=== PATIENT | male | born 1975 | race Caucasian/White ===

== ENCOUNTER 2019-05-04 23:22 | Emergency (ER) | payer OTHER ==
[2019-05-04] MEDS ORDERED: NA CHLORIDE 0.9% 1,000 ML ONE (23:49)
[2019-05-05 00:02] LABS: Absolute Lymphocytes (CBC) 1.9 K/uL (0.7-4.9); Basophils % 1.4 % (0-1.3); Hematocrit 42.7 % (39.6-49.0); Lymphocytes % 22.1 % (15.3-44.8); MPV 8.2 fL (7.6-11.3); RBC Red Blood Cell Count 5.05 M/uL (4.33-5.43)
[2019-05-05 00:15] LABS: Potassium 4.2 mmol/L (3.5-5.1)
[2019-05-05] MEDS ORDERED: NA CHLORIDE 0.9% 500 ML ONE (01:30)
--- NOTE | 2019-05-05 02:17 | EDPHYS ---
Physician Documentation [facility] Name: Caesar Schumacher Jr Age: 43 yrs Sex: Male : 1975 Arrival Date: 05/04/2019 Time: 23:24 Bed 20 Private MD: ED Physician Jimy Tellez HPI: 05/04 23:34 This 43 yrs old Male presents to ER via EMS with complaints of dysphagia. rn 23:34 The patient presents with dysphagia, of both solids and liquids. Onset: The rn symptoms/episode began/occurred 3 day(s) ago. Severity of symptoms: At their worst the symptoms were moderate, in the emergency department the symptoms are unchanged. Modifying factors: The symptoms are alleviated by nothing, the symptoms are aggravated by swallowing. The patient has experienced similar episodes in the past. Reports for 3-4 months has been having trouble swallowing solids and liquids, states almost every meal, chokes on it, then feels like can't catch his breath. Reports admitted in [place] for this in January, reports told everything was ok, including scope. REports can't drink anything or keep anything down but after episodes states tap water helps with his cough and able to keep it down then.. Historical: - Allergies: 23:20 No Known Allergies; cc3 - Home Meds: 23:20 Metformin Oral [Active]; lisinopril 20 mg Oral tab 1 tab once daily [Active]; cc3 - PMHx: 23:20 Diabetes - NIDDM; Hypertension; Hyperlipidemia; heartburn; Sleep Apnea; cc3 - PSHx: 23:20 left hand surgery; cc3 - Immunization history:: Adult Immunizations up to date. - Social history:: Smoking status: Patient/guardian denies using tobacco, never smoked. - Family history:: not pertinent. - Ebola Screening: : No symptoms or risks identified at this time. - Hospitalizations: : No recent hospitalization is reported. ROS: 23:36 Constitutional: Negative for fever, chills, and weight loss, Eyes: Negative for injury, rn pain, redness, and discharge, Neck: Negative for injury, pain, and swelling, Cardiovascular: Negative for chest pain, palpitations, and edema, Respiratory: Negative for wheezing, and pleuritic chest pain, Abdomen/GI: Negative for abdominal pain, diarrhea, and constipation, MS/Extremity: Negative for injury and deformity, Skin: Negative for injury, rash, and discoloration, Neuro: Negative for headache, weakness, numbness, tingling, and seizure. Exam: 23:36 Constitutional: Overweight male, no acute distress. Head/Face: Normocephalic, rn atraumatic. Eyes: Pupils equal round and reactive to light, extra-ocular motions intact. Lids and lashes normal. Conjunctiva and sclera are non-icteric and not injected. Cornea within normal limits. Periorbital areas with no swelling, redness, or edema. ENT: MMM, no stridor, no swelling Neck: Trachea midline, no thyromegaly or masses palpated, and no cervical lymphadenopathy. Supple, full range of motion without nuchal rigidity, or vertebral point tenderness. No Meningismus. Cardiovascular: Regular rate and rhythm. No pulse deficits. Respiratory: Lungs have equal breath sounds bilaterally, clear to auscultation. No increased work of breathing, no retractions or nasal flaring. Abdomen/GI: soft, non-tender MS/ Extremity: Pulses equal, no cyanosis. Neurovascular intact. Full, normal range of motion. Equal circumference. Neuro: Awake and alert, GCS 15, oriented to person, place, time, and situation. Cranial nerves II-XII grossly intact. Motor strength 5/5 in all extremities. Sensory grossly intact. Vital Signs: 23:20 BP 162 / 98; Pulse 97; Resp 20 S; Temp 98.4(O); Pulse Ox 98% on R/A; Weight 180.98 kg cc3 (R); Height 6 ft. 1 in. (185.42 cm) (R); Pain 0/10; 05/05 00:35 BP 143 / 85; Pulse 93; Resp 20 S; Pulse Ox 96% on R/A; cc3 01:30 BP 143 / 83; Pulse 91; Resp 20 S; Pulse Ox 95% on R/A; cc3 02:25 BP 148 / 82; Pulse 90; Resp 19 S; Pulse Ox 96% on R/A; cc3 03:15 BP 145 / 82; Pulse 90; Resp 19; Temp 98.3; Pulse Ox 96% ; rr5 05/04 23:20 Body Mass Index 52.64 (180.98 kg, 185.42 cm) cc3 MDM: 05/04 23:32 Patient medically screened. rn 05/05 01:26 ED course: Drank cup of water while here, no emesis. . rn 02:12 Differential diagnosis: pharyngitis, tonsillitis, upper respiratory infection, viral rn syndrome stricture, esophageal spasm. Data reviewed: vital signs, nurses notes, lab test result(s), radiologic studies, CT scan, plain films. Test interpretation: by ED physician or midlevel provider: plain radiologic studies, CXR neg for acute findings. Counseling: I had a detailed discussion with the patient and/or guardian regarding: the historical points, exam findings, and any diagnostic results supporting the discharge/admit diagnosis, lab results, radiology results, the need for outpatient follow up, to return to the emergency department if symptoms worsen or persist or if there are any questions or concerns that arise at home. Special discussion: I discussed with the patient/guardian in detail that at this point there is no indication for admission to the hospital. It is understood, however, that if the symptoms persist or worsen the patient needs to return immediately for re-evaluation. ED course: CT shows possible mild tonsillitis, will dc home with abx, and recommend starting antacid. Tolerated PO challenge here, and had neg scope a few months ago for ongoing symptoms. . 05/04 23:34 Order name: CBC with Diff; Complete Time: 00:33 rn 05/04 23:34 Order name: Basic Metabolic Panel; Complete Time: 00:33 rn 05/04 23:34 Order name: CT Soft Tissue Neck W/contr rn 05/04 23:34 Order name: Lipase; Complete Time: 00:33 rn 05/04 23:34 Order name: XRAY Chest (1 view) rn 05/04 23:34 Order name: IV Start; Complete Time: 23:58 rn 05/04 23:34 Order name: PO challenge; Complete Time: 00:10 rn Administered Medications: 05/04 23:57 Drug: NS 0.9% 1000 ml Route: IV; Rate: 1000 ml; Site: left antecubital; cc3 05/05 02:00 Follow up: Response: No adverse reaction; IV Status: Completed infusion; IV Intake: rr5 1000ml 01:41 Drug: NS 0.9% 500 ml Route: IV; Rate: bolus; Site: left antecubital; cc3 03:19 Follow up: Response: No adverse reaction; IV Status: Completed infusion; IV Intake: rr5 500ml 02:26 Drug: Augmentin 875 mg Route: PO; cc3 03:19 Follow up: Response: No adverse reaction rr5 Disposition: 05/05/19 02:16 Discharged to Home. Impression: Dysphagia, Acute tonsillitis, unspecified. - Condition is Stable. - Discharge Instructions: Dysphagia, Tonsillitis. - Prescriptions for Augmentin 875- 125 mg Oral Tablet - take 1 tablet by ORAL route every 12 hours for 10 days; 20 tablet. Protonix 40 mg Oral Tablet - take 1 tablet by ORAL route once daily; 30 tablet. Lantus 100 unit/mL Subcutaneous solution - inject 35 unit by SUBCUTANEOUS route Every morning and evening Daily; 1 vial. Lisinopril 20 mg Oral Tablet - take 1 tablet by ORAL route once daily; 30 tablet. - Medication Reconciliation Form, Thank You Letter, Antibiotic Education, Prescription Opioid Use form. - Follow up: Private Physician; When: As needed; Reason: Recheck today's complaints, Re-evaluation by your physician. - Problem is an ongoing problem. - Symptoms have improved. Signatures: Dispatcher [employer] EDMS Jimy Tellez MD MD rn Cordel, Charlene cc3 Hugo Jiménez RN RN rr5 Corrections: (The following items were deleted from the chart) 03:21 02:16 05/05/2019 02:16 Discharged to Home. Impression: Dysphagia; Acute tonsillitis, rr5 unspecified. Condition is Stable. Forms are Medication Reconciliation Form, Thank You Letter, Antibiotic Education, Prescription Opioid Use. Follow up: Private Physician; When: As needed; Reason: Recheck today's complaints, Re-evaluation by your physician. Problem is an ongoing problem. Symptoms have improved. rn
--- NOTE | 2019-05-05 02:17 | ER ---
Nurse's Notes [facility] Name: Caesar Schumacher Jr Age: 43 yrs Sex: Male : 1975 Arrival Date: 05/04/2019 Time: 23:24 Bed 20 Private MD: Diagnosis: Dysphagia;Acute tonsillitis, unspecified Presentation: 05/04 23:20 Presenting complaint: EMS states: "Since December, everytime he eats or drinks he feels like cc3 choking. Patient said he was seen in [place] in January". Transition of care: patient was not received from another setting of care. Onset of symptoms is unknown. Risk Assessment: Do you want to hurt yourself or someone else? Patient reports no desire to harm self or others. Initial Sepsis Screen: Does the patient meet any 2 criteria? No. Patient's initial sepsis screen is negative. Does the patient have a suspected source of infection? No. Patient's initial sepsis screen is negative. Care prior to arrival: None. 23:20 Method Of Arrival: EMS: [facility] cc3 23:20 Acuity: ERIS 3 cc3 Triage Assessment: 23:20 General: Appears in no apparent distress. comfortable, Behavior is calm, cooperative, cc3 appropriate for age. Pain: Denies pain. EENT: Reports everytime he eats or drinks he feels like choking. Neuro: Level of Consciousness is awake, alert, obeys commands, Oriented to person, place, time, situation, Appropriate for age. Cardiovascular: Denies chest pain, Capillary refill < 3 seconds in bilateral fingers Patient's skin is warm and dry. Respiratory: Airway is patent Respiratory effort is even, unlabored, Respiratory pattern is regular, symmetrical. GI: Abdomen is round obese. : No signs and/or symptoms were reported regarding the genitourinary system. Derm: Skin is intact, is healthy with good turgor, Skin is pink, warm \\T\\ dry. normal. Musculoskeletal: Circulation, motion, and sensation intact. Range of motion: intact in all extremities. Historical: - Allergies: 23:20 No Known Allergies; cc3 - Home Meds: 23:20 Metformin Oral [Active]; lisinopril 20 mg Oral tab 1 tab once daily [Active]; cc3 - PMHx: 23:20 Diabetes - NIDDM; Hypertension; Hyperlipidemia; heartburn; Sleep Apnea; cc3 - PSHx: 23:20 left hand surgery; cc3 - Immunization history:: Adult Immunizations up to date. - Social history:: Smoking status: Patient/guardian denies using tobacco, never smoked. - Family history:: not pertinent. - Ebola Screening: : No symptoms or risks identified at this time. - Hospitalizations: : No recent hospitalization is reported. Screenin:20 Abuse screen: Denies threats or abuse. Denies injuries from another. Nutritional cc3 screening: No deficits noted. Tuberculosis screening: No symptoms or risk factors identified. Fall Risk Ambulatory Aid- None/Bed Rest/Nurse Assist (0 pts). Gait- Normal/Bed Rest/Wheelchair (0 pts) Mental Status- Oriented to own ability (0 pts). Assessment: 23:20 General: see triage assessment. cc3 05/05 00:36 Reassessment: Patient appears in no apparent distress at this time. Patient and/or cc3 family updated on plan of care and expected duration. Pain level reassessed. Patient is alert, oriented x 3, equal unlabored respirations, skin warm/dry/pink. 01:30 Reassessment: Patient appears in no apparent distress at this time. Patient and/or cc3 family updated on plan of care and expected duration. Pain level reassessed. Patient is alert, oriented x 3, equal unlabored respirations, skin warm/dry/pink. Patient came back from CT scan department, awaiting result. 02:18 Reassessment: Patient appears in no apparent distress at this time. Patient and/or cc3 family updated on plan of care and expected duration. Pain level reassessed. Patient is alert, oriented x 3, equal unlabored respirations, skin warm/dry/pink. Dr. Tellez said to discharge the patient once IV fluid is completed. Patient denies pain at this time. 03:15 Reassessment: Patient appears in no apparent distress at this time. Patient is alert, rr5 oriented x 3, equal unlabored respirations, skin warm/dry/pink. IV fluid consumed and terminated discharge instruction given and explained without complaints made. verbalized undertsanding. Patient states feeling better. Patient states symptoms have improved. Vital Signs: 05/04 23:20 BP 162 / 98; Pulse 97; Resp 20 S; Temp 98.4(O); Pulse Ox 98% on R/A; Weight 180.98 kg cc3 (R); Height 6 ft. 1 in. (185.42 cm) (R); Pain 0/10; 05/05 00:35 BP 143 / 85; Pulse 93; Resp 20 S; Pulse Ox 96% on R/A; cc3 01:30 BP 143 / 83; Pulse 91; Resp 20 S; Pulse Ox 95% on R/A; cc3 02:25 BP 148 / 82; Pulse 90; Resp 19 S; Pulse Ox 96% on R/A; cc3 03:15 BP 145 / 82; Pulse 90; Resp 19; Temp 98.3; Pulse Ox 96% ; rr5 05/04 23:20 Body Mass Index 52.64 (180.98 kg, 185.42 cm) cc3 ED Course: 05/04 23:20 Arm band placed on right wrist. Patient notified of wait time. cc3 23:20 Patient has correct armband on for positive identification. Placed in gown. Bed in low cc3 position. Call light in reach. Side rails up X 1. Pulse ox on. NIBP on. 23:24 Patient arrived in ED. ds1 23:29 Landy Howard is Primary Nurse. cc3 23:32 Jimy Tellez MD is Attending Physician. rn 23:33 Triage completed. cc3 23:54 XRAY Chest (1 view) In Process Unspecified. EDMS 23:57 Inserted saline lock: 20 gauge in left antecubital area, using aseptic technique. Blood jd2 collected. 23:57 Initial lab(s) drawn, by me, sent to lab. jd2 05/05 01:21 CT Soft Tissue Neck W/contr In Process Unspecified. EDMS 03:16 No provider procedures requiring assistance completed. IV discontinued, intact, rr5 bleeding controlled, No redness/swelling at site. Pressure dressing applied. Administered Medications: 05/04 23:57 Drug: NS 0.9% 1000 ml Route: IV; Rate: 1000 ml; Site: left antecubital; cc3 05/05 02:00 Follow up: Response: No adverse reaction; IV Status: Completed infusion; IV Intake: rr5 1000ml 01:41 Drug: NS 0.9% 500 ml Route: IV; Rate: bolus; Site: left antecubital; cc3 03:19 Follow up: Response: No adverse reaction; IV Status: Completed infusion; IV Intake: rr5 500ml 02:26 Drug: Augmentin 875 mg Route: PO; cc3 03:19 Follow up: Response: No adverse reaction rr5 Intake: 02:00 IV: 1000ml; Total: 1000ml. rr5 03:19 IV: 500ml; Total: 1500ml. rr5 Outcome: 02:16 Discharge ordered by . rn 03:16 Discharged to home ambulatory. rr5 03:16 Condition: stable 03:16 Discharge instructions given to patient, Instructed on discharge instructions, follow up and referral plans. medication usage, Demonstrated understanding of instructions, follow-up care, medications, Prescriptions given X 4. 03:21 Patient left the ED. rr5 Signatures: Dispatcher [employer] [facility] [place] ds1 Jimy Tellez MD MD rn Donley, Jonika jd2 Cordel, Charlene cc3 Hugo Jiménez RN RN rr5 Corrections: (The following items were deleted from the chart) 05/04 23:38 23:20 BP 162 / 98; Pulse 97bpm; Resp 20bpm; Spontaneous; Pulse Ox 98% RA; cc3 cc3 05/05 00:36 05/04 23:20 BP 162 / 98; Pulse 97bpm; Resp 20bpm; Spontaneous; Pulse Ox 98% RA; Temp cc3 98.4F Oral; 180.98 kg Reported; Height 6 ft. 1 in. Reported; BMI: 52.6; cc3 05/05 01:33 01:30 Pulse 91bpm; Resp 20bpm; Spontaneous; Pulse Ox 95% RA; cc3 cc3
[2019-05-05] MEDS ORDERED: AMOX/K CLAV 875 MG TAB ONE (02:23)
[2019-05-05 03:30] VITALS: BP 145/82; TEMP 98.3; O2SAT 96
--- NOTE | 2019-05-05 07:42 | RAD REPORT ---
EXAM DESCRIPTION: RAD - Chest Single View - 05/04/2019 11:53 pm CLINICAL HISTORY: Dysphagia, chest pain COMPARISON: September 2014 TECHNIQUE: AP portable chest image was obtained 2348 hours . FINDINGS: Lungs are clear. Heart and vasculature are normal. No measurable pleural effusion and no p neumothorax. No acute bony abnormality seen. No acute aortic finding. Trachea is midline. Mediastinal and hilar regions are within normal limits and similar to comparison. IMPRESSION: No acute cardiopulmonary process.
--- NOTE | 2019-05-05 11:27 | RAD REPORT ---
EXAM DESCRIPTION: CT - Soft Tissue Neck W/Contr - 05/05/2019 2:43 am CLINICAL HISTORY: The patient is 43 years old and is Male; dysphagia TECHNIQUE: Axial computed tomography images of the neck with intravenous contrast. Sagittal and co yadira reformatted images were created and reviewed. This CT exam was performed using one or more of the following dose reduction techniques: automated exposure control, adjustment of the mA and/or k V according to patient size, and/or use of iterative reconstruction technique. COMPARISON: No relevant prior studies available. FINDINGS: OROPHARYNX: Mild enlargement of the palatine tonsils is noted. No peritonsillar absces s. HYPOPHARYNX: Unremarkable. LARYNX: Unremarkable. Normal epiglottis. TRACHEA: Unremarkable. RETROPHARYNGEAL SPACE: Unremarkable. SUBMANDIBULAR/PAROTID GLANDS: Unremarkable. Glands are normal in size. THYROID: Unremarkable. No enlarged or calcified nodules. BONES/JOINTS: No acute fracture. SOFT TISSUES: The soft tissues are normal. VASCULATURE: Unremarkable. Normal in course and caliber. LYMPH NODES: Unremarkable. No enlarged lymph nodes. LUNG APICES: The lung apices are clear. IMPRESSION: Findings suggestive of mild tonsillitis. No evidence of peritonsillar abscess. Electronically signed by: Priya Lombardo MD 05/05/2019 2:04 AM CDT Due to temporary technical issues with the PACS/Fluency reporting system, reports are being signed by the in house radiologist as a courtesy to ensure prompt reporting. The interpreting radiologist is f ully responsible for the content of the report.
== END 2019-05-05 03:21 | disposition home or self-care (01) ==
LOC: ER 23:22
DX: R13.10 Dysphagia, unspecified (principal); J03.90 Acute tonsillitis, unspecified
CPT/HCPCS: 96361; 85025; 80048; 36415; 83690; 70491; 71045; 96360; 99284; Q9967; J7030

== ENCOUNTER 2019-05-10 23:54 | Emergency (ER) | payer OTHER ==
[2019-05-11 01:23] LABS: Absolute Lymphocytes (CBC) 1.7 K/uL (0.7-4.9); Basophils % 0.9 % (0-1.3); Hematocrit 39.4 % (39.6-49.0); Lymphocytes % 23.7 % (15.3-44.8); MPV 8.2 fL (7.6-11.3); RBC Red Blood Cell Count 4.62 M/uL (4.33-5.43)
[2019-05-11 01:34] LABS: ALT/SGPT 72 U/L (12-78); AST/SGOT 50 U/L (15-37); Albumin 3.5 g/dL (3.4-5.0); Alkaline Phosphatase 79 U/L (45-117); BUN Blood Urea Nitrogen 17 mg/dL (7-18); Bicarbonate 30 mmol/L (21-32); Bilirubin Total 0.4 mg/dL (0.2-1.0); Glucose Level 170 mg/dL (74-106); Potassium 4.3 mmol/L (3.5-5.1); Protein, Total 7.2 g/dL (6.4-8.2); Sodium Level 141 mmol/L (136-145)
[2019-05-11] MEDS ORDERED: CEFTRIAXONE/SWI 1gm 1 GM/10 ML SYR ONE (04:03)
--- NOTE | 2019-05-11 04:05 | ER ---
Nurse's Notes [facility] Name: Caesar Schumacher Jr Age: 43 yrs Sex: Male : 1975 Arrival Date: 05/11/2019 Time: 00:02 Bed 5 Private MD: Diagnosis: Tinea cruris;Cellulitis Presentation: 05/11 00:04 Presenting complaint: EMS states: He has noticed that his testicles are swollen and tr5 that he has some blood in his urine for the past 3 days. Transition of care: patient was not received from another setting of care. Onset of symptoms was May 11, 2019. Risk Assessment: Do you want to hurt yourself or someone else? Patient reports no desire to harm self or others. Initial Sepsis Screen: Does the patient meet any 2 criteria? No. Patient's initial sepsis screen is negative. Does the patient have a suspected source of infection? No. Patient's initial sepsis screen is negative. 00:04 Method Of Arrival: EMS: [facility] tr5 00:04 Acuity: ERIS 3 tr5 02:15 Care prior to arrival: None. rr5 Historical: - Allergies: 00:08 No Known Allergies; tr5 - Home Meds: 00:08 Metformin Oral [Active]; lisinopril 20 mg Oral tab 1 tab once daily [Active]; tr5 - PMHx: 00:08 Diabetes - NIDDM; Heartburn; Hyperlipidemia; Hypertension; Sleep Apnea; ADD/ADHD; tr5 - PSHx: 00:08 None; tr5 - Immunization history:: Adult Immunizations up to date. - Social history:: Smoking status: unknown. - Ebola Screening: : No symptoms or risks identified at this time. Screenin:20 Abuse screen: Denies threats or abuse. Nutritional screening: No deficits noted. tr5 Tuberculosis screening: No symptoms or risk factors identified. Fall Risk None identified. Assessment: 00:20 General: Appears obese, unkempt, Behavior is calm, cooperative. Pain: Complains of pain tr5 in pelvis Pain does not radiate. Quality of pain is described as throbbing, Pain began gradually, Is episodic. Neuro: Level of Consciousness is awake, alert, obeys commands, Oriented to person, place, situation, [employer] Operator are equal bilaterally Moves all extremities. Cardiovascular: Heart tones present Capillary refill < 3 seconds Pulses are all present. Edema is absent. Respiratory: Airway is patent Respiratory effort is even, unlabored, Respiratory pattern is regular, symmetrical. GI: No signs and/or symptoms were reported involving the gastrointestinal system. : Reports Blood in urine. EENT: No signs and/or symptoms were reported regarding the EENT system. Derm: Rash noted that is on pelvis. 01:36 Reassessment: Patient appears in no apparent distress at this time. Patient and/or tr5 family updated on plan of care and expected duration. Pain level reassessed. Patient is alert, oriented x 3, equal unlabored respirations, skin warm/dry/pink. 02:15 Reassessment: Patient appears in no apparent distress at this time. Patient is alert, rr5 oriented x 3, equal unlabored respirations, skin warm/dry/pink. received from tejas HALEY, awake conscious and coherent not in distress GCS 15/15 breathing spontaneously at room air. complaining of swollen scrotum and blood in urine. awaiting for scrotal ultrasound procedure. 03:30 Reassessment: Patient appears in no apparent distress at this time. Patient is alert, rr5 oriented x 3, equal unlabored respirations, skin warm/dry/pink. awaiting for ultrasound result. chatting with his dietetic technician at bedside. 04:18 Reassessment: Patient appears in no apparent distress at this time. Patient is alert, rr5 oriented x 3, equal unlabored respirations, skin warm/dry/pink. discharge instruction given and explained without complaints made. Patient states feeling better. Patient states symptoms have improved. Vital Signs: 00:04 BP 160 / 97; Pulse 90; Resp 17; Temp 98.5(O); Pulse Ox 95% on R/A; Weight 181.44 kg; tr5 Height 0 ft. 1 in. (4 cm); 02:15 BP 148 / 85; Pulse 95; Resp 20; Temp 98.4; Pulse Ox 99% ; rr5 03:35 BP 143 / 89; Pulse 89; Resp 19; Pulse Ox 94% ; rr5 04:16 BP 141 / 85; Pulse 81; Resp 17; Temp 97.8; Pulse Ox 98% ; rr5 00:04 Body Mass Index 504958.09 (181.44 kg, 4 cm) tr5 ED Course: 00:02 Patient arrived in ED. tr5 00:07 Triage completed. tr5 00:08 Sukh Granger MD is Attending Physician. ps1 00:08 Arm band placed on. tr5 00:20 Bed in low position. Call light in reach. Side rails up X 1. tr5 00:28 Tejas Cardozo, RN is Primary Nurse. tr5 01:05 Initial lab(s) drawn, by me, sent to lab. Inserted saline lock: 20 gauge in left aa1 antecubital area, using aseptic technique. Blood collected. 01:10 Initial lab(s) drawn, by ED staff, sent to lab. Inserted saline lock: 20 gauge in left tr5 antecubital area, using aseptic technique. 03:13 Patient taken to ultrasound. via wheelchair. lc3 03:13 Ultrasound completed. Patient tolerated well. Patient moved back from ultrasound. lc3 03:15 Scrotum Testicles US In Process Unspecified. EDMS 04:16 No provider procedures requiring assistance completed. IV discontinued, intact, rr5 bleeding controlled, No redness/swelling at site. Pressure dressing applied. Administered Medications: 04:00 Drug: Rocephin - (cefTRIAXone) 1 grams Route: IVPB; Infused Over: 30 mins; Site: left rr5 antecubital; 04:22 Follow up: Response: No adverse reaction; IV Status: Completed infusion rr5 Outcome: 04:05 Discharge ordered by . ps1 04:16 Discharged to home ambulatory, with family. rr5 04:16 Condition: stable 04:16 Discharge instructions given to patient, Instructed on discharge instructions, follow up and referral plans. medication usage, Demonstrated understanding of instructions, follow-up care, medications, Prescriptions given X 3. 04:24 Patient left the ED. rr5 Signatures: Dispatcher [employer] EDPA Christelle Schmidt, RN RN aa1 Rosa Joshi lc3 Sukh Granger MD MD ps1 Hugo Jiménez RN RN rr5 Tejas Cardozo, SUDHA RN tr5
--- NOTE | 2019-05-11 04:05 | EDPHYS ---
Physician Documentation [facility] Name: Caesar Schumacher Jr Age: 43 yrs Sex: Male : 1975 Arrival Date: 05/11/2019 Time: 00:02 Bed 5 Private MD: ED Physician Sukh Granger HPI: 05/11 00:56 This 43 yrs old Male presents to ER via EMS with complaints of Testicular ps1 Problem, Urinary Problem. 00:56 patient states that his testicles have been swollen for last 3 days. States that he his ps1 diabetic. Poorly controlled. Unknown BS, has not checked them recently. Recently seen for dysphagia, had a CT STN, negative. Recent EGD negative. Testicles swollen over penis and retracted. . Historical: - Allergies: 00:08 No Known Allergies; tr5 - Home Meds: 00:08 Metformin Oral [Active]; lisinopril 20 mg Oral tab 1 tab once daily [Active]; tr5 - PMHx: 00:08 Diabetes - NIDDM; Heartburn; Hyperlipidemia; Hypertension; Sleep Apnea; ADD/ADHD; tr5 - PSHx: 00:08 None; tr5 - Immunization history:: Adult Immunizations up to date. - Social history:: Smoking status: unknown. - Ebola Screening: : No symptoms or risks identified at this time. ROS: 00:56 Constitutional: Negative for fever, chills, and weight loss, Eyes: Negative for injury, ps1 pain, redness, and discharge, Cardiovascular: Negative for chest pain, palpitations, and edema, Respiratory: Negative for shortness of breath, cough, wheezing, and pleuritic chest pain, Abdomen/GI: Negative for abdominal pain, nausea, vomiting, diarrhea, and constipation, MS/Extremity: Negative for injury and deformity, Skin: Negative for injury, rash, and discoloration. 00:56 : Positive for urinary symptoms, foul smelling urine, penile discharge, testicular pain Exam: 00:56 Constitutional: This is a well developed, well nourished patient who is awake, alert, ps1 and in no acute distress. Head/Face: Normocephalic, atraumatic. Eyes: Pupils equal round and reactive to light, extra-ocular motions intact. Lids and lashes normal. Conjunctiva and sclera are non-icteric and not injected. Chest/axilla: Normal chest wall appearance and motion. Nontender with no deformity. No lesions are appreciated. Cardiovascular: Regular rate and rhythm. No gallops, murmurs, or rubs. Normal PMI, no JVD. No pulse deficits. Respiratory: Lungs have equal breath sounds bilaterally, clear to auscultation and percussion. No rales, rhonchi or wheezes noted. No increased work of breathing, no retractions or nasal flaring. 00:56 : Male external genitalia: swelling, of the left testicle and right testicle is noted, that is moderate, penis is retracted underneath scrotal skin. . Vital Signs: 00:04 BP 160 / 97; Pulse 90; Resp 17; Temp 98.5(O); Pulse Ox 95% on R/A; Weight 181.44 kg; tr5 Height 0 ft. 1 in. (4 cm); 02:15 BP 148 / 85; Pulse 95; Resp 20; Temp 98.4; Pulse Ox 99% ; rr5 03:35 BP 143 / 89; Pulse 89; Resp 19; Pulse Ox 94% ; rr5 04:16 BP 141 / 85; Pulse 81; Resp 17; Temp 97.8; Pulse Ox 98% ; rr5 00:04 Body Mass Index 006795.09 (181.44 kg, 4 cm) tr5 MDM: 00:17 Patient medically screened. ps1 04:02 Data reviewed: vital signs, nurses notes, EMS record, old medical records, lab test ps1 result(s), radiologic studies, and as a result, I will discharge patient. Counseling: I had a detailed discussion with the patient and/or guardian regarding: the historical points, exam findings, and any diagnostic results supporting the discharge/admit diagnosis, lab results, radiology results, the need for outpatient follow up, to return to the emergency department if symptoms worsen or persist or if there are any questions or concerns that arise at home. ED course: patient has soft tissue swelling. No abscess. No leukocytosis. Prophylactic abx given in ED. Home with keflex and bactrim for suspected cellulitis. Precautions given. . 05/11 00:17 Order name: CBC with Diff; Complete Time: 01:24 ps1 05/11 00:17 Order name: CMP; Complete Time: 02:35 ps1 05/11 00:17 Order name: Lactate; Complete Time: 02:35 ps1 05/11 00:17 Order name: Scrotum Testicles US ps1 Administered Medications: 04:00 Drug: Rocephin - (cefTRIAXone) 1 grams Route: IVPB; Infused Over: 30 mins; Site: left rr5 antecubital; 04:22 Follow up: Response: No adverse reaction; IV Status: Completed infusion rr5 Disposition: 05/11/19 04:05 Discharged to Home. Impression: Tinea cruris, Cellulitis. - Condition is Stable. - Discharge Instructions: Cellulitis, Adult, Jock Itch. - Prescriptions for Keflex 500 mg Oral Capsule - take 1 capsule by ORAL route every 8 hours for 10 days; 30 capsule. Nystatin- Triamcinolone 100,000-0.1 unit/g-% Topical Cream - apply 1 application by TOPICAL route 2 times per day; 1 tube. Bactrim DS 800- 160 mg Oral Tablet - take 1 tablet by ORAL route every 12 hours for 10 days; 20 tablet. - Medication Reconciliation Form, Thank You Letter, Antibiotic Education, Prescription Opioid Use form. - Follow up: Private Physician; When: As needed; Reason: Recheck today's complaints, Continuance of care, Re-evaluation by your physician. Follow up: Emergency Department; When: As needed; Reason: Fever > 102 F, Worsening of condition. - Problem is new. - Symptoms have improved. Signatures: Dispatcher [employer] EDSukh Antunez MD MD ps1 Hugo Jiménez RN RN rr5 Yeison Cardozo RN RN tr5 Corrections: (The following items were deleted from the chart) 04:05 04:05 05/11/2019 04:05 Discharged to Home. Impression: Tinea cruris. Condition is ps1 Stable. Forms are Medication Reconciliation Form, Thank You Letter, Antibiotic Education, Prescription Opioid Use. Follow up: Private Physician; When: As needed; Reason: Recheck today's complaints, Continuance of care, Re-evaluation by your physician. Follow up: Emergency Department; When: As needed; Reason: Fever > 102 F, Worsening of condition. Problem is new. Symptoms have improved. ps1 04:24 04:05 05/11/2019 04:05 Discharged to Home. Impression: Tinea cruris; Cellulitis. rr5 Condition is Stable. Forms are Medication Reconciliation Form, Thank You Letter, Antibiotic Education, Prescription Opioid Use. Follow up: Private Physician; When: As needed; Reason: Recheck today's complaints, Continuance of care, Re-evaluation by your physician. Follow up: Emergency Department; When: As needed; Reason: Fever > 102 F, Worsening of condition. Problem is new. Symptoms have improved. ps1
[2019-05-11 04:54] VITALS: BP 141/85; TEMP 97.8; O2SAT 98
--- NOTE | 2019-05-11 11:02 | RAD REPORT ---
EXAM DESCRIPTION: US SCROTUM/TESTICLES CLINICAL HISTORY: Scrotal swelling and pain. COMPARISON: None. TECHNIQUE: Scrotal ultrasound FINDINGS: There is a large amount of scrotal skin thickening seen. Mild bilateral hydroceles are present. Arterial blood flow is seen to both testicles without evidence of torsion. The right testicle measures 4.6 x 2.9 cm. The left testicle measures 4.8 x 2.5 cm. Both epididymis are normal in size. No intratesticular mass is present. IMPRESSION: Significant scrotal edema and skin thickening is seen with small bilateral hydroceles. No intratesticular mass or evidence of testicular torsion is evident.
== END 2019-05-11 04:24 | disposition home or self-care (01) ==
LOC: ER 23:54
DX: B35.6 Tinea cruris (principal); N49.2 Inflammatory disorders of scrotum; I10 Essential (primary) hypertension; E11.9 Type 2 diabetes mellitus without complications
CPT/HCPCS: 96365; 85025; 36415; 83605; 80053; 76870; 99284; J0696

== ENCOUNTER 2020-02-23 09:54 | Emergency (ER) | payer OTHER ==
[2020-02-23 11:18] LABS: Absolute Lymphocytes (CBC) 1.5 K/uL (0.7-4.9); Basophils % 0.6 % (0-1.3); Hematocrit 44.9 % (39.6-49.0); Lymphocytes % 20.4 % (15.3-44.8); MPV 8.1 fL (7.6-11.3); RBC Red Blood Cell Count 5.24 M/uL (4.33-5.43)
[2020-02-23 11:28] LABS: Protime INR 0.98
[2020-02-23 11:35] LABS: Urine Blood NEGATIVE (NEG); Urine Glucose 2+ (NEG); Urine Protein NEGATIVE (NEG); Urine Specific Gravity 1.025 (1.005-1.030); Urine pH 5.5 (5.0-7.0)
[2020-02-23 11:40] LABS: ALT/SGPT 68 U/L (12-78); AST/SGOT 49 U/L (15-37); Albumin 3.4 g/dL (3.4-5.0); Alkaline Phosphatase 91 U/L (45-117); BUN Blood Urea Nitrogen 13 mg/dL (7-18); Bicarbonate 32 mmol/L (21-32); Bilirubin Direct < 0.1 mg/dL (0-0.2); Bilirubin Total 0.3 mg/dL (0.2-1.0); Glucose Level 338 mg/dL (74-106); Potassium 4.3 mmol/L (3.5-5.1); Protein, Total 7.6 g/dL (6.4-8.2); Sodium Level 135 mmol/L (136-145)
[2020-02-23 11:44] LABS: Barbiturates NEGATIVE (NEGATIVE); Benzodiazepines NEGATIVE (NEGATIVE); Cocaine NEGATIVE (NEGATIVE); METHAMPHETAM NEGATIVE (NEGATIVE); Methadone NEGATIVE (NEGATIVE); Opiates NEGATIVE (NEGATIVE); Phencyclidine NEGATIVE (NEGATIVE); THC Cannibis NEGATIVE (NEGATIVE)
[2020-02-23] MEDS ORDERED: INSULIN -REGULAR HUMAN 50 UNIT/0.5 ML ML ONE ×2 (11:56→18:41)
[2020-02-23] MEDS ORDERED: NA CHLORIDE 0.9% 1,000 ML ONE (11:56)
--- OUTSIDE RECORDS SUMMARY | 2020-02-23 13:31 | XMS REPORT | Clinical Summary ---
:1975 Author Organization [facility] Address [address] [place] [address] Care Team Providers Name Role Phone None Primary Care Provider Unavailable Allergies No Known Allergies Medications Medication Sig Dispensed Refills Start Date End Date Status rosuvastatin (CRESTOR) Take 10 mg by 0 Active 10 MG tablet mouth. metFORMIN (GLUCOPHAGE) Take 1,000 mg by 0 Active 1000 MG tablet mouth. lisinopril Take 20 mg by 0 Activ e (PRINIVIL,ZESTRIL) 20 MG mouth. tablet escitalopram (LEXAPRO) Take 30 mg by 0 Active 10 MG tablet mouth. famotidine (PEPCID) 40 Take 40 mg by 0 Active MG tablet mouth. Active Problems Not on file Social History Tobacco Use Types Packs/Day Years Used Date Current Every Day Smoker Alcohol Use Drinks/Week oz/Week Comments Yes Sex Assigned at Date Recorded Not on file Job Start Date Occupation Industry Not on file Not on file Not on file Travel History Travel Start Travel End No recent travel history available. Last Filed Vital Signs Not on file Plan of Treatment Not on file Results Not on fileafter 02/22/2019 Advance Directives For more information, please contact: [phone] Type Date Recorded Patient Licensed Funeral Director Explanati on Advance Directives, Living Will 08/12/2015 11:06 PM and Medical Power of Campus Security Officer
--- OUTSIDE RECORDS SUMMARY | 2020-02-23 13:31 | XMS REPORT | Clinical Summary ---
:1975 Author Organization [facility] Address [address] [place] [address] Care Team Providers Name Role Phone Beto Primary Care Provider Allergies No Known Allergies Medications Medication Sig Dispensed Refills Start Date End Date Status metFORMIN (GLUCOPHAGE) Take 1,000 mg by 0 Active 1000 MG tablet mouth 2 (two) times daily with breakfast and dinner. glyBURIDE (DIABETA) 5 Take 10 mg by 0 Active MG tablet mouth daily . lisinopril Take 20 mg by 0 Activ e (PRINIVIL,ZESTRIL) 20 mouth daily. MG tablet escitalopram (LEXAPRO) Take 30 mg by 0 Active 10 MG tablet mouth daily. famotidine (PEPCID) 40 Take 40 mg by 0 Active MG tablet mouth daily. rosuvastatin (CRESTOR) Take 10 mg by 0 Active 10 MG tablet mouth daily. Active Problems Not on file Family History Medical History Relation Name Comments Hypertension Father Diabetes Maternal Uncle Hypertension Maternal Uncle Hypertension Mother Relation Name Status Comments Father Maternal Uncle Mother Social History Tobacco Use Types Packs/Day Years Used Date Current Every Day Smoker Cigarettes 1 20 Alcohol Use Drinks/Week oz/Week Comments Yes 28 Cans of beer 16.8 daily Sex Assigned at Date Recorded Not on file Job Start Date Occupation Industry Not on file Not on file Not on file Travel History Travel Start Travel End No recent travel history available. Last Filed Vital Signs Not on file Plan of Treatment Not on file Results Not on fileafter 02/22/2019 Insurance Payer Benefit Plan / Subscriber ID Type Phone Address Group MEDICAID - MEDICAID [facility] xxxxxxxxx Medicaid Contracted MGD CARE PLAN
--- NOTE | 2020-02-23 17:13 | EDPHYS ---
Physician Documentation [facility] Name: Caesar Schumacher Jr Age: 44 yrs Sex: Male : 1975 Arrival Date: 02/23/2020 Time: 09:57 Bed 25 Private MD: ED Physician Shoaib Moran HPI: 02/22 14:17 This 44 yrs old Male presents to ER via Law Enforcement with complaints of kb Depression, Suicidal Ideation. 14:17 The patient presents to the emergency department with depression, over a , the kb patient's child. Onset: The symptoms/episode began/occurred 1.5 week(s) ago. Past psychiatric history: Prior diagnosis: bipolar disorder, depression. Associated signs and symptoms: Pertinent positives; depression, suicide ideation. Severity of symptoms: At their worst the symptoms were moderate in the emergency department the symptoms are unchanged. The patient has not experienced similar symptoms in the past. The patient has not recently seen a physician. 14:19 Pt reports depression and suicidal ideations for a week and a half. States the feelings kb started because his son and got worse today because the motel him and his fiance were staying in made them leave because they didn't have the money to stay another night. Fiance is here for same symptoms as well.. Historical: - Allergies: 10:03 No Known Allergies; ss - Home Meds: 10:03 lisinopril 20 mg Oral tab 1 tab once daily [Active]; Metformin Oral [Active]; ss - PMHx: 10:03 ADD/ADHD; Diabetes - NIDDM; Hyperlipidemia; Sleep Apnea; Hypertension; Heartburn; ss Bipolar disorder; - PSHx: 10:03 None; ss - Immunization history:: Adult Immunizations unknown. - Social history:: Smoking status: Patient denies any tobacco usage or history of. ROS: 14:16 Constitutional: Negative for fever, chills, and weight loss, Cardiovascular: Negative kb for chest pain, palpitations, and edema, Respiratory: Negative for shortness of breath, cough, wheezing, and pleuritic chest pain, Abdomen/GI: Negative for abdominal pain, nausea, vomiting, diarrhea, and constipation, Back: Negative for injury and pain, : Negative for injury, bleeding, discharge, and swelling, MS/Extremity: Negative for injury and deformity, Skin: Negative for injury, rash, and discoloration, Neuro: Negative for headache, weakness, numbness, tingling, and seizure. 14:16 Psych: Positive for depression, suicidal ideation. Exam: 14:16 Constitutional: This is a well developed, well nourished patient who is awake, alert, kb and in no acute distress. Head/Face: Normocephalic, atraumatic. Chest/axilla: Normal chest wall appearance and motion. Nontender with no deformity. No lesions are appreciated. Cardiovascular: Regular rate and rhythm with a normal S1 and S2. No gallops, murmurs, or rubs. Normal PMI, no JVD. No pulse deficits. Respiratory: Lungs have equal breath sounds bilaterally, clear to auscultation and percussion. No rales, rhonchi or wheezes noted. No increased work of breathing, no retractions or nasal flaring. Abdomen/GI: Soft, non-tender, with normal bowel sounds. No distension or tympany. No guarding or rebound. No evidence of tenderness throughout. Skin: Warm, dry with normal turgor. Normal color with no rashes, no lesions, and no evidence of cellulitis. MS/ Extremity: Pulses equal, no cyanosis. Neurovascular intact. Full, normal range of motion. Neuro: Awake and alert, GCS 15, oriented to person, place, time, and situation. Cranial nerves II-XII grossly intact. Motor strength 5/5 in all extremities. Sensory grossly intact. Cerebellar exam normal. Normal gait. 14:16 Psych: Behavior/mood is cooperative, Affect is calm, Oriented to person, place, time, Patient having thoughts of suicide. Denies suicidal plan. Judgement / Insight is normal. Memory is normal. Delusions/hallucinations are not present. Vital Signs: 10:00 BP 217 / 104; Pulse 105; Resp 22; Temp 98.4; Pulse Ox 94% ; Weight 154.22 kg; Height 6 ss ft. 1 in. (185.42 cm); Pain 0/10; 12:52 BP 141 / 96 RA (auto/lg); Pulse 82; Resp 20 S; Pulse Ox 94% on R/A; jp3 16:50 BP 176 / 94; Pulse 92; Resp 20; Temp 98.6; Pulse Ox 95% on R/A; Pain 0/10; em1 18:45 BP 166 / 98; Pulse 81; Resp 20; Pulse Ox 96% ; ah 19:30 BP 150 / 96; Pulse 87; Resp 18; Pulse Ox 95% ; ah 21:00 BP 149 / 88; Pulse 83; Resp 20; Pulse Ox 96% ; ah 10:00 Body Mass Index 44.86 (154.22 kg, 185.42 cm) ss MDM: 10:46 Patient medically screened. kb 14:16 Data reviewed: vital signs, nurses notes. Data interpreted: Pulse oximetry: on room air kb is 94 %. Interpretation: normal. 17:11 Counseling: I had a detailed discussion with the patient and/or guardian regarding: the kb historical points, exam findings, and any diagnostic results supporting the discharge/admit diagnosis, lab results, the need to transfer to another facility, [facility] does not immediately have the required specialist. 17:12 ED course: Pt accepted to [facility] by DR Kay. kb 02/22 10:47 Order name: Acetaminophen; Complete Time: 11:41 kb 02/22 10:47 Order name: Basic Metabolic Panel; Complete Time: 11:41 kb 02/22 10:47 Order name: CBC with Diff; Complete Time: 11:27 kb 02/22 10:47 Order name: ETOH Level; Complete Time: 11:34 kb 02/22 10:47 Order name: Hepatic Function; Complete Time: 11:41 kb 02/22 10:47 Order name: PT-INR; Complete Time: 11:49 kb 02/22 10:47 Order name: Ptt, Activated; Complete Time: 11:49 kb 02/22 10:47 Order name: Salicylate; Complete Time: 12:18 kb 02/22 10:47 Order name: Urine Drug Screen; Complete Time: 11:47 kb 02/22 11:30 Order name: Urine Dipstick--Ancillary (enter results); Complete Time: 11:36 em1 02/22 16:23 Order name: Glucose, Ancillary Testing; Complete Time: 16:25 EDMS 02/22 21:04 Order name: Glucose, Ancillary Testing EDMS 02/22 10:47 Order name: EKG; Complete Time: 10:49 kb 02/22 10:47 Order name: EKG - Nurse/Tech; Complete Time: 11:30 kb 02/22 10:47 Order name: IV Saline Lock; Complete Time: 11:31 kb 02/22 10:47 Order name: Labs collected and sent; Complete Time: 11:31 kb 02/22 10:47 Order name: Urine Dipstick-Ancillary (obtain specimen); Complete Time: 11:29 kb 02/22 12:03 Order name: Vital Signs; Complete Time: 12:53 kb 02/22 14:33 Order name: Diet Ada 1800 Efren; Complete Time: 14:33 ah Administered Medications: 11:50 Drug: NS 0.9% 1000 ml Route: IV; Rate: 1000 ml; Site: left antecubital; 22:56 Follow up: Response: No adverse reaction; IV Status: Completed infusion 11:50 Drug: Insulin Regular Human 5 units {Co-Signature: (Sammi Bocanegra RN).} Route: IVP; Site: left antecubital; 22:55 Follow up: Response: No adverse reaction 18:39 Drug: Insulin Regular Human 5 units {Co-Signature: (Saira Guzman RN).} Route: IVP; Site: left antecubital; 22:55 Follow up: Response: No adverse reaction; Blood sugar is lowered 18:40 Drug: cloNIDine 0.1 mg Route: PO; 22:55 Follow up: Response: No adverse reaction; Blood pressure is lowered Disposition: 02/23 08:22 Co-signature as Attending Physician, Shoaib Moran MD I agree with the assessment and [facility] plan of care. Disposition: 02/23/20 17:12 Transfer ordered to Psych Facility. Diagnosis are Suicidal ideations, Depression. - Reason for transfer: Higher level of care. - Accepting physician is Chirag. - Condition is Stable. - Problem is new. - Symptoms are unchanged. Signatures: Dispatcher [employer] Lizbeth Nath, TAX ADVISOR-C TAX ADVISOR-Ckb Shoaib Moran MD MD cha Smirch, Shelby, RN RN Sammi Bocanegra RN RN Sammi Bocanegra RN Saira Guzman RN Corrections: (The following items were deleted from the chart) 02/22 23:03 17:12 02/23/2020 17:12 Transfer ordered to Psych Facility. Diagnosis is Suicidal ah ideations; Depression. Reason for transfer: Higher level of care. Accepting physician is Chirag. Condition is Stable. Problem is new. Symptoms are unchanged. kb
--- NOTE | 2020-02-23 17:13 | ER ---
Nurse's Notes [facility] Name: Caesar Schumacher Jr Age: 44 yrs Sex: Male : 1975 Arrival Date: 02/23/2020 Time: 09:57 Bed 25 Private MD: Diagnosis: Suicidal ideations;Depression Presentation: 02/22 10:00 Chief complaint: Patient states: "I'm depressed and suicidal because my son ss a couple of weeks ago.". Coronavirus screen: Proceed with normal triage. Patient denies a cough. Patient denies shortness of breath or difficulty breathing. Patient denies measured and/or subjective temperature greater than 100.4F prior to today's visit. Patient denies travel on a cruise ship or to a country the [facility] currently lists as an affected area. Patient denies contact with known and/or suspected case of COVID-19. Ebola Screen: Patient negative for fever greater than or equal to 101.5 degrees Fahrenheit, and additional compatible Ebola Virus Disease symptoms Patient denies exposure to infectious person. Patient denies travel to an Ebola-affected area in the 21 days before illness onset. No symptoms or risks identified at this time. Initial Sepsis Screen: Does the patient meet any 2 criteria? No. Patient's initial sepsis screen is negative. Does the patient have a suspected source of infection? No. Patient's initial sepsis screen is negative. Risk Assessment: Do you want to hurt yourself or someone else? Patient reports desire/thoughts of hurting themselves or someone else. Provider notified. Onset of symptoms was February 13, 2020. 10:00 Method Of Arrival: Law Enforcement: Rianna JAMES 10:00 Acuity: ERIS 2 ss Historical: - Allergies: 10:03 No Known Allergies; ss - Home Meds: 10:03 lisinopril 20 mg Oral tab 1 tab once daily [Active]; Metformin Oral [Active]; ss - PMHx: 10:03 ADD/ADHD; Diabetes - NIDDM; Hyperlipidemia; Sleep Apnea; Hypertension; Heartburn; ss Bipolar disorder; - PSHx: 10:03 None; ss - Immunization history:: Adult Immunizations unknown. - Social history:: Smoking status: Patient denies any tobacco usage or history of. Screenin:05 Abuse screen: Denies threats or abuse. Nutritional screening: No deficits noted. Tuberculosis screening: No symptoms or risk factors identified. Fall Risk None identified. Assessment: 12:01 General: Appears obese, unkempt, Behavior is calm, cooperative, appropriate for age. Pain: Denies pain. Neuro: Level of Consciousness is awake, alert, obeys commands, Oriented to person, place, time, situation, Appropriate for age. Cardiovascular: Capillary refill < 3 seconds Patient's skin is warm and dry. Respiratory: Airway is patent Respiratory effort is even, unlabored. GI: Abdomen is obese, Derm: Skin is intact, Skin is dry. 12:18 Reassessment: Pt states that he has been seeing ghosts and demons for the last 7 days.He also states that he hears voices telling him to hurt himself but nothing specific. He was taking lexapro but has been out about 3 months. He states that he was also taking 2 other medications but cannot remember what they are and quit taking them because he thought he was better. 14:15 Reassessment:. 15:45 Reassessment: Nurse to nurse communication given to [facility]. 16:15 Reassessment: Pt sitting up in bed eating at this time. No needs voiced. 17:15 Reassessment: Patient and/or family updated on plan of care and expected duration. Pain ah level reassessed. Patient is alert, oriented x 3, equal unlabored respirations, skin warm/dry/pink. No needs voiced at this time. 18:40 Reassessment: Patient and/or family updated on plan of care and expected duration. Pain ah level reassessed. Pt given clonidine and insulin at this time. No other needs voiced at this time. 19:40 Reassessment: Patient and/or family updated on plan of care and expected duration. Pain ah level reassessed. Patient is alert, oriented x 3, equal unlabored respirations, skin warm/dry/pink. 20:40 Reassessment: Patient and/or family updated on plan of care and expected duration. Pain ah level reassessed. Patient is alert, oriented x 3, equal unlabored respirations, skin warm/dry/pink. No needs voiced at this time. 21:40 Reassessment: Patient and/or family updated on plan of care and expected duration. Pain ah level reassessed. Blood sugar and blood pressure are decreased. Awaiting transfer. No needs voiced. 22:52 Reassessment: transfer of care to [facility]. Psych: 12:06 Subjective: Patient's mood is sad, Hallucinations are auditory, Having thoughts of ah suicide. Objective: Patient is cooperative, Speech is normal, Affect is appropriate. Interventions: Removed personal items and placed in bag. Patient placed in hospital gown. Searched person for dangerous items. Urine collected and sent for urine drug test. Belonging list filled out. Suicide Risk Assessment: Sad Person Scale: Sex of patient: Male: Score 1 point. Age of patient: Score 0 point if patient falls outside of specified age parameters. Depression: Score 1 point if signs of depression are present. Previous Attempt: Score 1 point if patient has previously attempted suicide. Rational Thinking: Score 0 point if patient has rational thinking. Social Support: Score 1 point if social support is lacking and/or unavailable. Relationship: Score 0 point if patient has a spouse or domestic partner. TOTAL POINTS: If total points are 3-4, proposed clinical action is close follow-up/consider hospitalization. Safety Checks: Personal items have been removed. Door is open. 12:17 Pt denies substance abuse. 23:02 Commitment: Patient will be a voluntary commitment. Vital Signs: 10:00 BP 217 / 104; Pulse 105; Resp 22; Temp 98.4; Pulse Ox 94% ; Weight 154.22 kg; Height 6 ss ft. 1 in. (185.42 cm); Pain 0/10; 12:52 BP 141 / 96 RA (auto/lg); Pulse 82; Resp 20 S; Pulse Ox 94% on R/A; jp3 16:50 BP 176 / 94; Pulse 92; Resp 20; Temp 98.6; Pulse Ox 95% on R/A; Pain 0/10; em1 18:45 BP 166 / 98; Pulse 81; Resp 20; Pulse Ox 96% ; 19:30 BP 150 / 96; Pulse 87; Resp 18; Pulse Ox 95% ; 21:00 BP 149 / 88; Pulse 83; Resp 20; Pulse Ox 96% ; 10:00 Body Mass Index 44.86 (154.22 kg, 185.42 cm) ED Course: 09:57 Patient arrived in ED. am2 10:02 Triage completed. 10:03 Arm band placed on right wrist. ss 10:46 Lizbeth Guzman, JEANNIE-C is PHCP. kb 10:46 Shoaib Moran MD is Attending Physician. kb 11:29 Acetaminophen Sent. mh5 11:30 Basic Metabolic Panel Sent. mh5 11:30 ETOH Level Sent. mh5 11:30 Hepatic Function Sent. mh5 11:30 PT-INR Sent. mh5 11:30 Ptt, Activated Sent. mh5 11:30 Salicylate Sent. 5 11:30 Urine Drug Screen Sent. mh5 11:31 Patient has correct armband on for positive identification. Placed in gown. Bed in low mh5 position. Call light in reach. Side rails up X 1. Warm blanket given. Pillow given. 11:31 Initial lab(s) drawn, by in, sent to lab. Urine collected: clean catch specimen, clear, mh5 EKG done, by ED staff, reviewed by Shoaib Moran MD. Inserted saline lock: 22 gauge in left antecubital area, using aseptic technique. Blood collected. 11:32 Safety checks: Items removed: yes. Door open/sign placed on door: yes. Family/friend [facility] present: no. Sitter present: Yes. 11:44 Sammi Bocanegra, RN is Primary Nurse. 14:20 [facility] contacted to initiate screening process. em1 14:50 Cierra from the [facility] called to screen pt. em1 15:21 Cierra from the [facility] called to advise on the screening completion. em1 Cierra to contact [facility] in an attempt to secure a bed. 23:02 No provider procedures requiring assistance completed. IV discontinued, intact, bleeding controlled, No redness/swelling at site. Pressure dressing applied. Administered Medications: 11:50 Drug: NS 0.9% 1000 ml Route: IV; Rate: 1000 ml; Site: left antecubital; 22:56 Follow up: Response: No adverse reaction; IV Status: Completed infusion 11:50 Drug: Insulin Regular Human 5 units {Co-Signature: (Sammi Bocanegra RN).} Route: IVP; Site: left antecubital; 22:55 Follow up: Response: No adverse reaction 18:39 Drug: Insulin Regular Human 5 units {Co-Signature: (Saira Guzman RN).} Route: IVP; Site: left antecubital; 22:55 Follow up: Response: No adverse reaction; Blood sugar is lowered 18:40 Drug: cloNIDine 0.1 mg Route: PO; 22:55 Follow up: Response: No adverse reaction; Blood pressure is lowered Outcome: 17:12 ER care complete, transfer ordered by MD. damon 23:01 Transferred by ground EMS 23:01 Condition: stable 23:01 Instructed on the need for transfer. 23:03 Patient left the ED. Signatures: Lizbeth Guzman, CHRISTIAN DENNIS-Jefry Krishna 1 Saira Guzman, RN RN Faith Avila 5 Ariana Zuniga am2 Acosta Lilly jp3 Sammi Bocanegra RN RN Sammi Bocanegra RN Saira Guzman RN Corrections: (The following items were deleted from the chart) 12:21 12:18 Reassessment: Pt states that he has been seeing ghosts and demons for the last 7 days. He was taking lexapro but has been out about 3 months. He states that he was also taking 2 other medications but cannot remember what they are and quit taking them because he thought he was better 22:48 18:35 BP 150 / 96; Pulse 87bpm; Resp 18bpm; Pulse Ox 95%; [facility]
[2020-02-23] MEDS ORDERED: cloNIDine HCL 0.1 MG TAB ONE (18:40)
[2020-02-24 00:26] VITALS: TEMP 98.6
[2020-02-24 00:30] VITALS: BP 149/88; O2SAT 96
--- NOTE | 2020-02-24 07:47 | EKG ---
Test Date: 2020-02-23 Test Time: 11:20:17 Telegraph Editor: MYNOR MEASUREMENT RESULTS: Intervals: Rate: 90 VT: 174 QRSD: 96 QT: 360 QTc: 440 [place]: P: 66 VT: 174 QRS: 110 T: 53 INTERPRETIVE STATEMENTS: Normal sinus rhythm Possible Left atrial enlargement Incomplete right bundle branch block Left posterior fascicular block Abnormal ECG Compared to ECG 09/22/2014 06:42:14 Incomplete right bundle-branch block now present Left posterior fascicular block now present Electronically Signed On 02-24-20 07:44:40 CDT by Truman Holly
== END 2020-02-23 23:03 ==
LOC: ER 09:54
DX: F32.9 Major depressive disorder, single episode, unspecified (principal); F90.9 Attention-deficit hyperactivity disorder, unspecified type; I10 Essential (primary) hypertension; E11.9 Type 2 diabetes mellitus without complications
CPT/HCPCS: 96361; 93005; 85025; 80048; 36415; 80320; 80329 ×2; 85610; 82947 ×2; 80076; 80307 ×8; 85730; 81003; 96374; 99285; J7030

== ENCOUNTER 2020-03-21 06:43 | Emergency (ER) | payer OTHER ==
--- OUTSIDE RECORDS SUMMARY | 2020-03-21 06:47 | XMS REPORT | Clinical Summary ---
:1975 Author Organization [facility] Address [address] [place] [address] Care Team Providers Name Role Phone Beto [...] Not on file Results Not on fileafter 03/21/2019 Insurance Payer Benefit Plan / Subscriber ID Type Phone Address Group MEDICAID - MEDICAID [facility] xxxxxxxxx Medicaid Contracted [employer] PLAN
--- OUTSIDE RECORDS SUMMARY | 2020-03-21 06:47 | XMS REPORT | Clinical Summary ---
:1975 Author Organization [facility] Address [facility] [place] [address] Care Team Providers Name Role Phone Unavailable Primary Care Provider Unavailable Allergies Active Allergy Reactions Severity Noted Date Comments No Known Allergies 06/23/2011 Medications Medication Sig Dispensed Refills Start Date End Date Status aspirin (ASPIRIN) 81 mg Chew and swallow 30 tablet 3 6 Active chewable 1 tablet by mouth tabletIndications: daily. Diabetes mellitus blood glucose test Use to test blood 50 Each 3 08/12/2015 Active stripsIndications: sugar 3 times Diabetes mellitus daily. lancets 28 Use to test blood 100 Each 0 08/13/2015 Active gaugeIndications: sugar 3 times Diabetes mellitus daily. blood glucose Use as directed.. 1 Kit 0 08/12/2015 Active meterIndications: Diabetes mellitus lancetsIndications: Check daily 1 Box 0 08/12/2015 Active Diabetes mellitus before breakfast. famotidine (PEPCID) 20 Take 1 tablet by 30 tablet 0 08/12/2015 Active mg tabletIndications: mouth 2 times Medication refill daily. blood glucose Use as directed.. 1 Kit 0 08/22/2015 Active meterIndications: Type 2 diabetes mellitus with hyperglycemia lancets 28 2 times weekly. 100 Each 2 08/22/2015 Ac tive gaugeIndications: Type 2 diabetes mellitus with hyperglycemia blood glucose test 2 times weekly to 50 Each 3 08/22/2015 Active stripsIndications: Type test blood sugar. 2 diabetes mellitus with hyperglycemia glyBURIDE (DIABETA) 5 Take 1 tablet by 30 tablet 3 02/09/2016 Active mg tabletIndications: mouth daily (with Medication refill breakfast). atorvastatin (LIPITOR) Take 1 tablet by 60 tablet 0 02/09/2016 Active 40 mg mouth at bedtime tabletIndications: nightly. Medication refill metFORMIN (GLUCOPHAGE) Take 2 tablets by 60 tablet 3 6 Active 500 mg mouth 2 times tabletIndications: daily (with Medication refill meals). lisinopril (PRINIVIL, Take 1 tablet by 30 tablet 3 02/09/2016 Active ZESTRIL) 20 mg mouth daily. tabletIndications: Medication refill escitalopram (LEXAPRO) Take 1 tablet by 14 tablet 0 08/01/2016 Active 10 mg mouth daily. tabletIndications: MDD (major depressive disorder), recurrent episode, moderate Active Problems Problem Noted Date MDD (major depressive disorder), recurrent episode, mo derate 02/02/2016 Edema extremities 02/01/2016 MDD (major depressive disorder), recurrent, in full re mission 08/12/2015 Cellulitis of lower extremity 08/12/2015 Malingering 11/03/2012 Social problem 11/03/2012 Mental retardation 11/03/2012 Acromegaly 10/31/2012 Diabetes mellitus 02/29/2012 Hypertension 02/29/2012 MANUEL (obstructive sleep apnea) 08/04/2011 Obesity 08/04/2011 Mood disorder 07/29/2011 Chest pain 04/22/2011 Hyperglycemia Suicidal ideation Borderline intellectual functioning Noncompliance with medication regimen Suicidal thoughts Dysuria Social History Tobacco Use Types Packs/Day Years Used Date Current Every Day Smoker Cigarettes 1.5 20 Smokeless Tobacco: Never Used Alcohol Use Drinks/Week oz/Week Comments Yes daily abuse, 6 1 2 ounce drinks Sex Assigned at Date Recorded Not on file Job Start Date Occupation Industry Not on file Not on file Not on file Travel History Travel Start Travel End No recent travel history available. Last Filed Vital Signs Not on file Plan of Treatment Health Maintenance Due Date Last Done Comments DM HGBA1C (Yearly) 1975 DM Foot Exam (Yearly) 1993 DM Retinal Exam (Yearly) 1993 IMM Influenza Seasonal May to October (>/= 19 yrs) 05/12/2020 Results Not on fileafter 03/21/2019 Insurance Payer Benefit Plan / Subscriber ID Effective Phone Address T ype Group Dates [facility] xxxxxxxxx 2016-Pres [phone] [employer] [facility] [id number] [place] [address] [phone] (Work) Advance Directives Code Status Date Activated Date Inactivated Comments Full Code 08/03/2011 11:43 PM 08/04/2011 7:47 PM
--- OUTSIDE RECORDS SUMMARY | 2020-03-21 06:47 | XMS REPORT | Clinical Summary ---
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
--- OUTSIDE RECORDS SUMMARY | 2020-03-21 06:48 | XMS REPORT | Continuity of Care Document ---
:1975 Author Organization [facility] t Address [address] [place] [address] Care Team Providers Name Role Phone None Primary Care Physician Unavailable Giancarlo Loza Attending Clinician Unavailable Giancarlo Loza Attending Clinician Unavailable Paresh Cowart Attending Clinician Unavailable Paresh Cowart Attending Clinician Unavailable Giancarlo Loza Admitting Clinician Unavailable Paresh Cowart Admitting Clinician Unavailable Problems Condition Condition Condition Status Onset Resolution Last Treating Co mments Source Name Details Category Date Date Treatment Clinician Date MDD (major MDD (major Disease Active H [facility]is depressive depressive 02-01 He alth disorder), disorder), 00:00: recurrent recurrent 00 episode, episode, moderate moderate Edema Edema Disease Active Daljit extremitie extremitie 01-31 He alth s s 00:00: 00 MDD (major MDD (major Disease Active H arris depressive depressive 08-12 He alth disorder), disorder), 00:00: recurrent, recurrent, 00 in full in full remission remission Cellulitis Cellulitis Disease Active H arris of lower of lower 08-12 Health extremity extremity 00:00: 00 Malingerin Malingerin Disease Active H arris g g 11-03 Health 00:00: 00 Social Social Disease Active Bocanegra problem problem 11-03 Health 00:00: 00 Mental Mental Disease Active Daljit retardatio retardatio 11-03 He alth n n 00:00: 00 Acromegaly Acromegaly Disease Active H arris 10-31 Health 00:00: 00 Diabetes Diabetes Disease Active Virgilio perez mellitus mellitus 02-28 Health 00:00: 00 Hypertensi Hypertensi Disease Active H arris on on 02-28 Health 00:00: 00 MANUEL MANUEL Disease Active 2010-08 [place] (obstructi (obstructi 10-05 He alth ve sleep ve sleep 00:00: apnea) apnea) 00 Obesity Obesity Disease Active 2010-08 [place] 10-05 Health 00:00: 00 Mood Mood Disease Active 2010-08 [place] disorder disorder 09-29 Health 00:00: 00 Chest pain Chest pain Disease Active H arris 04-22 Health 00:00: 00 Hyperglyce Hyperglyce Disease Active H arris vanessa vanessa Health 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 Family History Family Member Diagnosis Comments Start Date Stop Date Source Natural father Hypertension [facility] Maternal uncle Diabetes [facility] Maternal uncle Hypertension [facility] Natural mother Hypertension [facility] Social History Social Habit Start Date Stop Date Quantity Comments Source History of tobacco Cigarette Smoker [facility] use Sex Assigned At [facility] alth Cigarettes smoked 2016-08-01 2016-08-01 [facility] current (pack per 00:00:00 00:00:00 day) - Reported Cigarette 2016-08-01 2016-08-01 [facility] pack-years 00:00:00 00:00:00 Alcohol intake 2016-08-01 2016-08-01 Current drinker [facility] 00:00:00 00:00:00 of alcohol (finding) Alcohol Comment 2016-02-01 2016-02-01 daily abuse, 6 12 [facility] 00:00:00 00:00:00 ounce drinks Smoking Status Start Date Stop Date Source Current every day smoker 2016-08-01 00:00:00 [facility] Medications Ordered Filled Start Stop Current Ordering Indication Dosage Frequency Signature Comments Components Source Medication Medication Date Date Medication? Clinician (SIG) Name Name rosuvastati 2015-08 Yes 10mg Take 10 mg [facility] n (CRESTOR) 2-22 by mouth. Met hodi 10 MG 03:54: st tablet 58 metFORMIN 2015-08 Yes 1000mg Take 1,000 [facility] (GLUCOPHAGE 2-22 mg by Methodi ) 1000 MG 03:54: mouth. st tablet 58 lisinopril 2015-08 Yes 20mg Take 20 mg [place] (PRINIVIL,Z 2-22 by mouth. Met hodi ESTRIL) 20 03:54: st MG tablet 58 escitalopra 2015-08 Yes 30mg Take 30 mg [facility] m (LEXAPRO) 2-22 by mouth. Met hodi 10 MG 03:54: st tablet 58 famotidine 2015-08 Yes 40mg Take 40 mg [place] (PEPCID) 40 2-22 by mouth. Met hodi MG tablet 03:54: st 58 escitalopra 2015-08 Yes MDD (major 10mg QD Take 1 [facility] m (LEXAPRO) 2-21 depressive tablet by Health 10 mg 00:00: disorder), mouth tablet 00 recurrent daily. episode, moderate glyBURIDE Yes Medication 5mg QD Take 1 [facility]ocanegra (DIABETA) 5 6-30 refill tablet by H ealth mg tablet 00:00: mouth 00 daily (with breakfast) . atorvastati Yes Medication 40mg Take 1 Bocanegra n (LIPITOR) 6-30 refill tablet by H ealth 40 mg 00:00: mouth at tablet 00 bedtime nightly. metFORMIN Yes Medication 1000mg Take 2 Bocanegra (GLUCOPHAGE 6-30 refill tablets by [facility] ) 500 mg 00:00: mouth 2 tablet 00 times daily (with meals). lisinopril Yes Medication 20mg QD Take 1 [facility] (PRINIVIL, 6-30 refill tablet by alth ZESTRIL) 20 00:00: mouth mg tablet 00 daily. rosuvastati Yes 10mg QD Take [address] [facility] (CRESTOR) 6-06 by mouth Luke s - 10 MG 17:12: daily. Medical tablet 58 Center blood Yes Type 2 Use as [facility] glucose 1-11 diabetes directed.. He alth meter 00:00: mellitus 00 with hyperglycem ia lancets 28 Yes Type 2 2 times Reeder rris gauge 1-11 diabetes weekly. Health 00:00: mellitus 00 with hyperglycem ia blood Yes Type 2 2 times [facility] glucose 1-11 diabetes weekly to Hea lth test strips 00:00: mellitus test blood 00 with sugar. hyperglycem ia glyBURIDE Yes 10mg QD Take [address] (DIABETA) 5 08-13 by mouth Luke s - MG tablet 01:43: daily . Medic al 50 Boomer famotidine Yes 40mg QD Take [address] (PEPCID) 40 08-13 by mouth Luke s - MG tablet 01:43: daily. Medica l 50 Boomer lancets Yes Diabetes Use to H arris gauge - mellitus test blood [facility] th 00:00: sugar 3 00 times daily. aspirin Yes Diabetes 81mg QD Chew and Reeder rris (ASPIRIN) 08-12 mellitus swallow 1 H ealth 81 mg 00:00: tablet by chewable 00 mouth tablet daily. blood Yes Diabetes 1{each} Use to [facility] glucose - mellitus test blood He alth test strips 00:00: sugar 3 00 times daily. blood Yes Diabetes Use as [facility] glucose 08-12 mellitus directed.. He alth meter 00:00: 00 lancets Yes Diabetes Check Harri s - mellitus daily Health 00:00: before 00 breakfast. famotidine Yes Medication 20mg Q.5D Take 1 Bocanegra (PEPCID) 20 08-12 refill tablet by H ealth mg tablet 00:00: mouth 2 00 times daily. metFORMIN Yes 1000mg Take 1,[address] (GLUCOPHAGE 3-29 mg by [facility] - ) 1000 MG 19:00: mouth 2 Medic al tablet 47 (two) Center times daily with breakfast and dinner. lisinopril Yes 20mg QD Take [address] (PRINIVIL,Z 3-29 by mouth Luke s - ESTRIL) 20 19:00: daily. Medic al MG tablet 47 Center escitalopra Yes 30mg QD Take [address] [facility] (LEXAPRO) 3-29 by mouth Luke s - 10 MG 19:00: daily. Medical tablet 47 Center Procedures This patient has no known procedures. Plan of Care Planned Activity Planned Date Details Comments Source Future Scheduled Test 2020-05-12 00:00:00 IMM Influenza Seasonal [facility] May to October (>/= 19 yrs) [code = IMM Influenza Seasonal May to October (>/= 19 yrs)] Future Scheduled Test 1993 00:00:00 DM Foot Exam (Yearly) [facility] [code = DM Foot Exam (Yearly)] Future Scheduled Test 1993 00:00:00 DM Retinal Exam [facility] (Yearly) [code = DM Retinal Exam (Yearly)] Future Scheduled Test 1975 00:00:00 Hemoglobin A1c [facility] measurement (procedure) [code = 73118610] Encounters Start End Encounter Admission Attending Care Care Encounter Source Date/Time Date/Time Type Type Clinicians Facility Department ID 2020-03-10 2020-03-10 Emergency 1 Edgard Loza [facility] [place] [id number] 12:33:00 13:18:00 Edgard Loza [facility]ilipp[facility] 2020-03-10 2020-03-10 Emergency [facility] MAR[facility] M [id number] [address] 12:33:00 12:33:00 [id number] [facility] 2020-03-08 2020-03-08 Emergency 1 [facility] MARIA M [id number] 06:38:00 12:26:00 [facility] Results Test Description Test Time Test Comments Results Result Comments Source POC Glucose 2020-03-04 16:23:32 Test Item Value Reference Range Interpretation Comme nts Glucose POC (test code = 272 mg/dL 70-115 H If you consider your patient Glucose POC) critically ill, the Becky-Accu Check Infrom II meter should not be used for Glucose det ermination. Draw a venous Glucose and send to the main Lab for analysi s. RPR [id number] 15:59:09 Test Item Value Reference Range Interpretation Comments RPR Qual (test code = RPR Qual) Non-Reactive Non-Reactive Reactive Control (test code = Reactive Reactive Control) Weak Reactive Control (test Weak Reactive code = Weak Reactive Control) Non-Reactive Control (test code Non-Reactive = Non-Reactive Control) Lot # (test code = Lot #) [id number] N Expiration Dt (test code = 05-11-2021 N Expiration Dt) POC [id number] 11:13:27 Test Item Value Reference Range Interpretation Comments Glucose POC (test 309 mg/dL 70-115 H If you con farm mechanic your code = Glucose POC) patient critically ill, the Becky-Accu Check Infrom II meter should not be used for Glucose determination. Draw a venous Glucose and send to the main Lab for analysis. POC [id number] 07:55:00 Test Item Value Reference Range Interpretation Comments Glucose POC (test 300 mg/dL 70-115 H If you con farm mechanic your code = Glucose POC) patient critically ill, the Becky-Accu Check Infrom II meter should not be used for Glucose determination. Draw a venous Glucose and send to the main Lab for analysis. POC [id number] 16:39:59 Test Item Value Reference Range Interpretation Comments Glucose POC (test 286 mg/dL 70-115 H Notify RN or MDIf you code = Glucose POC) consider your patient critically ill, the Becky-Accu Chec k Infrom II meter should not be used for Glucos e determination. Draw a venous Glucose and send to the main Lab for analysis. POC [id number] 12:35:26 Test Item Value Reference Range Interpretation Comments Glucose POC (test 327 mg/dL 70-115 H Notify RN or MDIf you code = Glucose POC) consider your patient critically ill, the Becky-Accu Chec k Infrom II meter should not be used for Glucos e determination. Draw a venous Glucose and send to the main Lab for analysis. POC [id number] 08:39:02 Test Item Value Reference Range Interpretation Comments Glucose POC (test 292 mg/dL 70-115 H If you con farm mechanic your code = Glucose POC) patient critically ill, the Becky-Accu Check Infrom II meter should not be used for Glucose determination. Draw a venous Glucose and send to the main Lab for analysis. Novel Coronavirus SARS-CoV-2, [id number] 01:25:42 Test Item Value Reference Range Interpretation Comments SARS-CoV-2 PCR NEGATIVE Negative Positive resu lts are (test code = indicative of a ctive SARS-CoV-2 PCR) infection wi th SARS-CoV-2; clinical correl ation with patient history and other diagnostic info rmation is necessary to de termine patient infecti on status.Presumpt bright positive result s -INTERPRET WITH CAUTION: Resul t may not reflect if kishore ent is actually positi ve. Patient should be treat ed based on clinical suspic ions. Negative result s do not preclude SARS-C oV-2 infection and s hould not be used as the sole basis for treatment o r other patient managem ent decisions. Nega tive results must be combined with clinical observations, p atient history, and epidemiological information.The Xpert Xpress SARS-CoV -2 test is only for use un aurelio the Food and Drug Administration s Emergency Use Authorization." Urinalysis with Culture, if [id number] 20:40:20 Test Item Value Reference Range Interpretation Comments UA Color (test code = UA Color) YELLO Yellow UA Appear (test code = UA CLEAR Clear Appear) UA pH (test code = UA pH) 6.5 N UA Spec Grav (test code = UA 1.005 1.001-1.035 Spec Grav) UA Glucose (test code = UA 100 mg/dL Negative A Glucose) UA Bili (test code = UA Bili) NEG Negative UA Ketones (test code = UA NEG Negative Ketones) UA Blood (test code = UA Blood) NEG Negative UA Protein (test code = UA NEG Negative Protein) UA Urobilinogen (test code = UA .2 mg/dL >0.2 Urobilinogen) UA Nitrite (test code = UA NEG Negative Nitrite) UA Leuk Est (test code = UA NEG Negative Leuk Est) UA Micro Ind? (test code = UA Not Indicated Not Indicated Micro Ind?) Urine [id number] 20:38:34 Test Item Value Reference Range Interpretation Comments Amphetamine Screen Ur Negative Negative The sp ecimen is (test code = presumptive pos itive Amphetamine Screen Ur) if th e analyte concentration i s equal to or greater t camilo 1000 ng/ml.If confirmation of positive result is desired, please order Amphetamine Confirmation, U rine within 7 days. Barbiturate Screen Ur Negative Negative The sp ecimen is (test code = presumptive pos itive Barbiturate Screen Ur) if th e analyte concentration i s equal to or greater t camilo 200 ng/ml.If confir mation of positive res ult is desired, please order Barbiturate Confirmation, U rine within 7 days. Benzodiazepines Ur Negative Negative The speci men is (test code = presumptive pos itive Benzodiazepines Ur) if the a nalyte concentration i s equal to or greater t camilo 200 ng/ml.If confir mation of positive res ult is desired, please order Benzodiazephine Confirmation, U rine within 7 days. Cocaine Screen Ur (test Negative Negative The specimen is code = Cocaine Screen presum ptive positive Ur) if the analyte concentration i s equal to or greater t camilo 300 ng/ml.If confir mation of positive res ult is desired, please order Cocaine Metabol ite Confirmation, U rine within 7 days. Opiate Screen Ur (test Negative Negative The s pecimen is code = Opiate Screen presump tive positive Ur) if the analyte concentration i s equal to or greater t camilo 2000 ng/ml.If confirmation of positive result is desired, please order Opiate Confirm ation, Urine within 7 days. U PCP Scrn (test code = Negative Negative The specimen is U PCP Scrn) presumptive pos itive if the analyte concentration i s equal to or greater t camilo 25 ng/ml.If confir mation of positive res ult is desired, please order Phencyclidine Confirmation, U rine within 7 days. Cannabinoid Screen Ur Negative Negative The sp ecimen is (test code = presumptive pos itive Cannabinoid Screen Ur) if th e analyte concentration i s equal to or greater t camilo 50 ng/ml.If confir mation of positive res ult is desired, please order Cannabinoid (TH C) Confirmation, U rine within 7 days. U Methadone Scr (test Negative Negative The sp ecimen is code = U Methadone Scr) pres umptive positive if the analyte concentration i s equal to or greater t camilo 300 ng/ml.If confir mation of positive res ult is desired, please order Methadone Confirmation, U rine within 7 days. U Propoxyphene (test Negative Negative The spe cimen is code = U Propoxyphene) presu mptive positive if the analyte concentration i s equal to or greater t camilo 300 ng/ml.If confir mation of positive res ult is desired, please order Propoxyphene Confirmation wi thin 7 days. Alcohol [id number] 20:31:32 Test Item Value Reference Range Interpretation Comments Ethanol Level 3.3 mg/dL N The pharmacolo gical (test code = response to blo od alcohol Ethanol Level) levels may va ry from individual to i ndividual. The fatal keenan ntration has been report ed to be >400 mg/dl. Comprehensive Metabolic [id number] 20:31:31 Test Item Value Reference Range Interpretation Comments Sodium Level (test code = Sodium 139.0 mmol/L 136.0-145.0 Level) Potassium Level (test code = 4.20 mmol/L 3.50-5.10 Potassium Level) Chloride Level (test code = 95.0 mmol/L 98.0-107.0 L Chloride Level) CO2 (test code = CO2) 36 mmol/L 20-31 H Anion Gap (test code = Anion 8.2 mmol/L 5.0-15.0 Gap) BUN (test code = BUN) 21 mg/dL 9-23 Creatinine Level (test code = 1.17 mg/dL 0.70-1.30 Creatinine Level) BUN/Creat Ratio (test code = 17.9 ratio 10.0-20.0 BUN/Creat Ratio) Glucose Level (test code = 285 mg/dL 74-106 H Glucose Level) Calcium Level (test code = 9.5 mg/dL 8.3-10.6 Calcium Level) Alk Phos (test code = Alk Phos) 107 U/L 46-116 Bilirubin Total (test code = 0.5 mg/dL 0.2-1.1 Bilirubin Total) Albumin Level (test code = 4.1 g/dL 3.2-4.8 Albumin Level) Protein Total (test code = 7.3 g/dL 5.7-8.2 Protein Total) ALT (test code = ALT) 65 U/L 10-49 H AST (test code = AST) 50 U/L <=34 H Globulin (test code = Globulin) 3.2 g/dL 2.3-3.5 A/G Ratio (test code = A/G 1.3 g/dL 0.8-2.0 Ratio) Hemolysis (test code = 0 g/dL 1-2 Hemolysis) Icterus (test code = Icterus) 0 g/dL 1-2 Lipemia (test code = Lipemia) 0 g/dL 1-2 Comprehensive Metabolic [id number] 20:31:31 Test Item Value Reference Range Interpretation Comments Sodium Level (test 139.0 mmol/L 136.0-145.0 code = Sodium Level) Potassium Level 4.20 mmol/L 3.50-5.10 (test code = Potassium Level) Chloride Level (test 95.0 mmol/L 98.0-107.0 L code = Chloride Level) CO2 (test code = 36 mmol/L 20-31 H CO2) Anion Gap (test code 8.2 mmol/L 5.0-15.0 = Anion Gap) BUN (test code = 21 mg/dL 9-23 BUN) Creatinine Level 1.17 mg/dL 0.70-1.30 (test code = Creatinine Level) BUN/Creat Ratio 17.9 ratio 10.0-20.0 (test code = BUN/Creat Ratio) Glucose Level (test 285 mg/dL 74-106 H code = Glucose Level) Calcium Level (test 9.5 mg/dL 8.3-10.6 code = Calcium Level) Alk Phos (test code 107 U/L 46-116 = Alk Phos) Bilirubin Total 0.5 mg/dL 0.2-1.1 (test code = Bilirubin Total) Albumin Level (test 4.1 g/dL 3.2-4.8 code = Albumin Level) Protein Total (test 7.3 g/dL 5.7-8.2 code = Protein Total) ALT (test code = 65 U/L 10-49 H ALT) AST (test code = 50 U/L <=34 H AST) Globulin (test code 3.2 g/dL 2.3-3.5 = Globulin) A/G Ratio (test code 1.3 g/dL 0.8-2.0 = A/G Ratio) eGFR AA (test code = >60 >=60 eGFR (e stimated eGFR AA) mL/min/1.73 m2 Glomerular Filtration Rate ) is an estimated va lue, calculated from the patient's serum creatinine usin g the MDRD equation. It is NOT the patient 's actual GFR. The eGFR provides a more clinically usef ul measure of kidn ey disease than se rum creatinine alone.This calculation geovanna es sex and race in to account, if the information is provided. If th e race is not provided, and t he patient is -Shanice n, multiply by 1.2 12. If sex is not provided, and t he patient is fema le, multiply by 0.7 42. Results for pat ients <18 years of ag e have not been validated by th e MDRD study and should be interpreted wit h caution. eGFR R esult Interpretation: eGFR > or = 60 is in the Normal RangeeGF R < 60 may mean kid shane diseaseeGFR < 1 5 may mean kidney failure Rang es recommended by the National Kidney Foundation, http://nkdep.ni h.gov Hemolysis (test code 0 g/dL 1-2 = Hemolysis) Icterus (test code = 0 g/dL 1-2 Icterus) Lipemia (test code = 0 g/dL 1-2 Lipemia) Comprehensive Metabolic [id number] 20:31:31 Test Item Value Reference Range Interpretation Comments Sodium Level (test 139.0 mmol/L 136.0-145.0 code = Sodium Level) Potassium Level 4.20 mmol/L 3.50-5.10 (test code = Potassium Level) Chloride Level (test 95.0 mmol/L 98.0-107.0 L code = Chloride Level) CO2 (test code = 36 mmol/L 20-31 H CO2) Anion Gap (test code 8.2 mmol/L 5.0-15.0 = Anion Gap) BUN (test code = 21 mg/dL 9-23 BUN) Creatinine Level 1.17 mg/dL 0.70-1.30 (test code = Creatinine Level) BUN/Creat Ratio 17.9 ratio 10.0-20.0 (test code = BUN/Creat Ratio) Glucose Level (test 285 mg/dL 74-106 H code = Glucose Level) Calcium Level (test 9.5 mg/dL 8.3-10.6 code = Calcium Level) Alk Phos (test code 107 U/L 46-116 = Alk Phos) Bilirubin Total 0.5 mg/dL 0.2-1.1 (test code = Bilirubin Total) Albumin Level (test 4.1 g/dL 3.2-4.8 code = Albumin Level) Protein Total (test 7.3 g/dL 5.7-8.2 code = Protein Total) ALT (test code = 65 U/L 10-49 H ALT) AST (test code = 50 U/L <=34 H AST) Globulin (test code 3.2 g/dL 2.3-3.5 = Globulin) A/G Ratio (test code 1.3 g/dL 0.8-2.0 = A/G Ratio) eGFR AA (test code = >60 >=60 eGFR (e stimated eGFR AA) mL/min/1.73 m2 Glomerular Filtration Rate ) is an estimated va lue, calculated from the patient's serum creatinine usin g the MDRD equation. It is NOT the patient 's actual GFR. The eGFR provides a more clinically usef ul measure of kidn ey disease than se rum creatinine alone.This calculation geovanna es sex and race in to account, if the information is provided. If th e race is not provided, and t he patient is -Shanice n, multiply by 1.2 12. If sex is not provided, and t he patient is fema le, multiply by 0.7 42. Results for pat ients <18 years of ag e have not been validated by [facility] MDRD study and should be interpreted wit h caution. eGFR R esult Interpretation: eGFR > or = 60 is in the Normal RangeeGF R < 60 may mean kid shane diseaseeGFR < 1 5 may mean kidney failure Rang es recommended by the National Kidney Foundation, http://nkdep.ni h.gov eGFR Non-AA (test >60.00 >=60.00 eGFR (renny mated code = eGFR Non-AA) mL/min/1.73 m2 Glomer ular Filtration Rate ) is an estimated va lue, calculated from the patient's serum creatinine usin g the MDRD equation. It is NOT the patient 's actual GFR. The eGFR provides a more clinically usef ul measure of kidn ey disease than se rum creatinine alone.This calculation geovanna es sex and race in to account, if the information is provided. If th e race is not provided, and t he patient is -Shanice n, multiply by 1.2 12. If sex is not provided, and t he patient is fema le, multiply by 0.7 42. Results for pat ients <18 years of ag e have not been validated by [facility] MDRD study and should be interpreted wit h caution. eGFR R esult Interpretation: eGFR > or = 60 is in the Normal RangeeGF R < 60 may mean kid shane diseaseeGFR < 1 5 may mean kidney failure Rang es recommended by the National Kidney Foundation, http://nkdep.[facility].gov Hemolysis (test code 0 g/dL 1-2 = Hemolysis) Icterus (test code = 0 g/dL 1-2 Icterus) Lipemia (test code = 0 g/dL 1-2 Lipemia) Complete Blood Count with [id number] 20:11:47 Test Item Value Reference Range Interpretation Comments WBC (test code = WBC) 8.8 x10 4.4-10.5 RBC (test code = RBC) 5.48 x10 4.10-5.70 Hgb (test code = Hgb) 15.6 g/dL 13.4-17.4 MCV (test code = MCV) 89.10 fL 80.00-100.00 Hct (test code = Hct) 48.8 % 38.7-52.0 MCHC (test code = 32.00 g/dL 32.00-37.50 MCHC) RDW CV (test code = 12.6 % 11.5-14.5 RDW CV) MCH (test code = MCH) 28.5 pg 27.0-32.5 Platelets (test code = 251.0 x10 140.0-440.0 Platelets) MPV (test code = MPV) 10.3 fL N Slide Review (test Auto Auto Result cr eated by code = Slide Review) GL_SJM_ SLIDE_REV_AUTO nRBC (test code = 0 N nRBC) NRBC Abs (test code = 0.00 x10 N NRBC Abs) IPF (test code = IPF) 0 % N Automated [id number] 20:11:47 Test Item Value Reference Range Interpretation Comments Neutro Auto (test code = Neutro 67.9 % 36.0-70.0 Auto) Lymph Auto (test code = Lymph Auto) 20.3 % 12.0-44.0 [place] Auto (test code = [place] Auto) 9.4 % 0.0-11.0 Eos, Auto (test code = Eos, Auto) 1.9 % 0.0-7.0 Basophil Auto (test code = Basophil 0.3 % 0.0-2.0 Auto) Neutro Absolute (test code = Neutro 5.9 x10 1.6-7.4 Absolute) Lymph Absolute (test code = Lymph 1.78 x10 .50-4.60 Absolute) [place] Absolute (test code = [place] .82 x10 .00-1.20 Absolute) Eos Absolute (test code = Eos 0.17 x10 0.00-0.74 Absolute) Baso Absolute (test code = Baso 0.03 x10 0.00-0.21 Absolute) IG [id number] 20:11:47 Test Item Value Reference Range Interpretation Comments IG (test code = IG) 0.2 % 0.0-5.0 IG Abs (test code = IG Abs) 0 x10 N
[2020-03-21] MEDS ORDERED: LIDOCAINE 1% MPF 5 ML VIAL ONE (07:37)
--- NOTE | 2020-03-21 07:57 | EDPHYS ---
Physician Documentation [facility] Name: Caesar Schumacher Jr Age: 44 yrs Sex: Male : 1975 Arrival Date: 03/21/2020 Time: 06:49 Bed 20 Private MD: ED Physician Jimy Tellez HPI: 03/21 07:43 This 44 yrs old Male presents to ER via EMS with complaints of Abscess. rn 07:43 The patient presents with an abscess of the back of neck. Description: erythematous, rn fluctuant, swollen, warm. Onset: The symptoms/episode began/occurred 3 day(s) ago. Possible cause(s): unknown. Modifying factors: the symptoms are alleviated by nothing, the symptoms are aggravated by squeezing the lesion and expressing the contents, touching. Severity of symptoms: At their worst the symptoms were mild, in the emergency department the symptoms are unchanged. The patient has not experienced similar symptoms in the past. The patient has not recently seen a physician. Historical: - Allergies: 06:53 No Known Allergies; lp1 - Home Meds: 06:53 None [Active]; lp1 - PMHx: 06:53 ADD/ADHD; Bipolar disorder; Diabetes - NIDDM; Heartburn; Hyperlipidemia; Hypertension; lp1 Sleep Apnea; - PSHx: 06:53 Hand surgery; lp1 - Immunization history:: Adult Immunizations up to date. - Social history:: Smoking status: Patient denies any tobacco usage or history of. - Family history:: not pertinent. - Hospitalizations: : No recent hospitalization is reported. ROS: 07:43 Constitutional: Negative for fever, chills, and weight loss, Skin: + abscess rn Exam: 07:43 Constitutional: This is a well developed, well nourished patient who is awake, alert, rn and in no acute distress. Skin: 2 cm fluctuant area back of neck/base of scalp, not open, + mild erythema Vital Signs: 06:50 BP 142 / 82; Pulse 104; Resp 20; Temp 98.4(O); Pulse Ox 94% on R/A; Weight 176.9 kg lp1 (R); Height 6 ft. 0 in. (182.88 cm); 06:50 Body Mass Index 52.89 (176.90 kg, 182.88 cm) lp1 Procedures: 07:55 I \T\ D: Incision and drainage was performed for an abscess of the posterior neck Prepped rn with Betadine, Anesthetized with 2 ml's 1% Lidocaine. Incised with #11 blade. Drained small amount purulent fluid. serosanguinous fluid. Packed with iodoform gauze, Dressing: sterile 4x4 gauze, the patient tolerated the procedure well. MDM: 07:22 Patient medically screened. rn 07:55 Differential diagnosis: abscess. Data reviewed: vital signs, nurses notes, and as a rn result, I will discharge patient. Counseling: I had a detailed discussion with the patient and/or guardian regarding: the historical points, exam findings, and any diagnostic results supporting the discharge/admit diagnosis, the need for outpatient follow up, to return to the emergency department if symptoms worsen or persist or if there are any questions or concerns that arise at home. Response to treatment: the patient's symptoms have mildly improved after treatment, and as a result, I will discharge patient. Special discussion: I discussed with the patient/guardian in detail that at this point there is no indication for admission to the hospital. It is understood, however, that if the symptoms persist or worsen the patient needs to return immediately for re-evaluation. 03/21 07:26 Order name: Incision \T\ Drainage Setup; Complete Time: 07:34 rn Administered Medications: 07:34 Drug: Lidocaine (1 %) 1 vials {Note: administered by Dr. Tellez.} Volume: 5 ml; Route: ss Infiltration; 08:00 Drug: Clindamycin 300 mg Route: PO; 08:14 Follow up: Response: No adverse reaction; Medication administered at discharge. Disposition: 03/21/20 07:57 Discharged to Home. Impression: Cutaneous abscess, furuncle and carbuncle of neck. - Condition is Stable. - Discharge Instructions: Skin Abscess, Percutaneous Abscess Drain. - Prescriptions for Clindamycin HCl 300 mg Oral Capsule - take 1 capsule by ORAL route every 6 hours for 10 days; 40 capsule. - Medication Reconciliation Form, Thank You Letter, Antibiotic Education, Prescription Opioid Use form. - Follow up: Constantino Castle MD; When: 2 - 3 days; Reason: Wound Recheck, Recheck today's complaints, Re-evaluation by your physician. - Problem is new. - Symptoms have improved. Signatures: Jimy Tellez MD MD rn Smirch, Shelby, RN RN ss Margie Mena RN RN lp1 Corrections: (The following items were deleted from the chart) 08:15 07:57 03/21/2020 07:57 Discharged to Home. Impression: Cutaneous abscess, furuncle and ss carbuncle of neck. Condition is Stable. Forms are Medication Reconciliation Form, Thank You Letter, Antibiotic Education, Prescription Opioid Use. Follow up: Constantino Castle; When: 2 - 3 days; Reason: Wound Recheck, Recheck today's complaints, Re-evaluation by your physician. Problem is new. Symptoms have improved. rn
--- NOTE | 2020-03-21 07:57 | ER ---
Nurse's Notes [facility] Name: Caesar Schumacher Jr Age: 44 yrs Sex: Male : 1975 Arrival Date: 03/21/2020 Time: 06:49 Bed 20 Private MD: Diagnosis: Cutaneous abscess, furuncle and carbuncle of neck Presentation: 03/21 06:50 Chief complaint: EMS states: Called for patient with possible spider bit to back of lp1 scalp that occurred 4 days ago. Coronavirus screen: Client denies travel out of the [place] in the last 14 days. At this time, the client does not indicate any symptoms associated with coronavirus-19. Ebola Screen: No symptoms or risks identified at this time. Initial Sepsis Screen: Does the patient meet any 2 criteria? No. Patient's initial sepsis screen is negative. Does the patient have a suspected source of infection? No. Patient's initial sepsis screen is negative. Risk Assessment: Do you want to hurt yourself or someone else? Patient reports no desire to harm self or others. Onset of symptoms was March 21, 2020. 06:50 Method Of Arrival: EMS: [facility] 1 06:50 Acuity: ERIS 4 lp1 Historical: - Allergies: 06:53 No Known Allergies; lp1 - Home Meds: 06:53 None [Active]; lp1 - PMHx: 06:53 ADD/ADHD; Bipolar disorder; Diabetes - NIDDM; Heartburn; Hyperlipidemia; Hypertension; lp1 Sleep Apnea; - PSHx: 06:53 Hand surgery; lp1 - Immunization history:: Adult Immunizations up to date. - Social history:: Smoking status: Patient denies any tobacco usage or history of. - Family history:: not pertinent. - Hospitalizations: : No recent hospitalization is reported. Screenin:53 Abuse screen: Denies threats or abuse. Denies injuries from another. Nutritional lp1 screening: No deficits noted. Tuberculosis screening: No symptoms or risk factors identified. Fall Risk None identified. Assessment: 07:35 General: Appears in no apparent distress. obese, unkempt. Pain: Complains of pain in ss base of the skull Pain currently is 5 out of 10 on a pain scale. Quality of pain is described as tender, Pain began 3-4 days ago. Neuro: Level of Consciousness is awake, alert, obeys commands, Oriented to person, place, time, situation. Cardiovascular: Capillary refill < 3 seconds is brisk in bilateral fingers. Respiratory: Airway is patent Respiratory effort is even, unlabored, Respiratory pattern is regular, symmetrical. GI: Patient currently denies diarrhea, nausea, vomiting. : No signs and/or symptoms were reported regarding the genitourinary system. EENT: Nares are clear Oral mucosa is moist. Derm: Abscess located on base of the skull. Musculoskeletal: Circulation, motion, and sensation intact. Range of motion: intact in all extremities. 08:15 Reassessment: Patient appears in no apparent distress at this time. Patient and/or ss family updated on plan of care and expected duration. Pain level reassessed. Vital Signs: 06:50 BP 142 / 82; Pulse 104; Resp 20; Temp 98.4(O); Pulse Ox 94% on R/A; Weight 176.9 kg lp1 (R); Height 6 ft. 0 in. (182.88 cm); 06:50 Body Mass Index 52.89 (176.90 kg, 182.88 cm) lp1 ED Course: 06:49 Patient arrived in ED. lp1 06:51 Triage completed. lp1 06:52 Arm band placed on. lp1 06:53 Patient has correct armband on for positive identification. lp1 07:02 Jimy Tellez MD is Attending Physician. rn 07:24 Saira Guzman RN is Primary Nurse. ss 07:56 Constantino Castle MD is Referral Physician. rn 08:14 Assist provider with I \T\ D: of an abscess on Wound packed. iodoform gauze, Dressing ss with 4X4s, tape Patient tolerated well. Patient did not have IV access during this emergency room visit. Administered Medications: 07:34 Drug: Lidocaine (1 %) 1 vials {Note: administered by Dr. Tellez.} Volume: 5 ml; Route: ss Infiltration; 08:00 Drug: Clindamycin 300 mg Route: PO; ss 08:14 Follow up: Response: No adverse reaction; Medication administered at discharge. Outcome: 07:57 Discharge ordered by . rn 08:14 Discharged to home ambulatory. ss 08:14 Condition: good 08:14 Discharge instructions given to patient, Instructed on discharge instructions, follow up and referral plans. medication usage, wound care, Demonstrated understanding of instructions, follow-up care, medications, wound care, Prescriptions given X 1. 08:15 Patient left the ED. Signatures: Jimy Tellez MD MD rn [facility] RN Margie Mena RN RN lp1
[2020-03-21 12:48] VITALS: BP 142/82; TEMP 98.4; O2SAT 94
== END 2020-03-21 08:15 | disposition home or self-care (01) ==
LOC: ER 06:43
PROC: 0H94XZZ Drainage of Neck Skin, External Approach (ICD-10-PCS; principal; 2020-03-21)
DX: L02.11 Cutaneous abscess of neck (principal); I10 Essential (primary) hypertension
CPT/HCPCS: 99284

== ENCOUNTER 2020-03-26 11:52 | Emergency (ER) | payer OTHER ==
--- OUTSIDE RECORDS SUMMARY | 2020-03-26 11:54 | XMS REPORT | Clinical Summary ---
:1975 Author Organization [facility] Address [facility] [place] [address] Care Team Providers Name Role Phone Unavailable [...] 19 yrs) 05/12/2020 Results Not on fileafter 03/26/2019 Insurance Payer Benefit Plan / Subscriber ID Effective Phone Address T ype Group Dates [facility] xxxxxxxxx 2016-Pres [phone] [employer] [facility] [id number] [place] [address] [phone] (Work) Advance Directives Code Status Date Activated Date Inactivated Comments Full Code 08/03/2011 11:43 PM 08/04/2011 7:47 PM
--- OUTSIDE RECORDS SUMMARY | 2020-03-26 11:54 | XMS REPORT | Clinical Summary ---
:1975 Author Organization [facility] Address [address] [place] [address] Care Team Providers Name Role Phone Beto [...] Not on file Results Not on fileafter 03/26/2019 Insurance Payer Benefit Plan / Subscriber ID Type Phone Address Group MEDICAID - MEDICAID [facility] xxxxxxxxx Medicaid Contracted [employer]AN
--- OUTSIDE RECORDS SUMMARY | 2020-03-26 11:54 | XMS REPORT | Clinical Summary ---
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
--- OUTSIDE RECORDS SUMMARY | 2020-03-26 11:55 | XMS REPORT | Continuity of Care Document ---
:1975 Author Organization [facility] t Address [address] [place] [address] Care Team Providers Name Role Phone None [...] 00:00: 00 MANUEL MANUEL Disease Active 2010-08 [place] (obstructi (obstructi 10-05 He alth ve sleep ve sleep 00:00: apnea) apnea) 00 Obesity Obesity Disease Active 2010-08 [place] 10-05 Health 00:00: 00 Mood Mood Disease Active 2010-08 [place] disorder disorder 09-29 Health 00:00: 00 Chest [...] regimen Suicidal Suicidal Disease Active [facility] Dysuria Dysuria Disease Active [facility] Allergies, Adverse Reactions, Alerts This patient has no known allergies or adverse reactions. Family History Family Member Diagnosis Comments Start Date Stop Date Source Natural father Hypertension [facility] Maternal uncle Diabetes [facility] Maternal uncle Hypertension [facility] Natural mother Hypertension [facility] Social History Social Habit Start Date Stop Date Quantity Comments Source History of tobacco Cigarette Smoker [facility] use Sex Assigned At [facility] alth Cigarettes smoked 2016-08-01 2016-08-01 [facility] current (pack per 00:00:00 00:00:00 day) - Reported Cigarette 2016-08-01 2016-08-01 [facility] pack-years 00:00:00 00:00:00 Alcohol intake 2016-08-01 2016-08-01 Current drinker [facility] 00:00:00 00:00:00 of alcohol (finding) Alcohol Comment 2016-02-01 2016-02-01 daily abuse, 6 12 [facility] 00:00:00 00:00:00 ounce drinks Smoking Status Start Date Stop Date Source Current every day smoker 2016-08-01 00:00:00 [facility] Medications Ordered Filled Start Stop Current Ordering [...] 2 Bocanegra (GLUCOPHAGE 6-30 refill tablets by [facility] ) 500 mg 00:00: mouth 2 [...] tablet 01:43: daily . Medic al [address] [place] famotidine Yes 40mg QD Take [address] (PEPCID) 40 08-13 by mouth Luke s - MG tablet 01:43: daily. Medica l [address] [place] lancets Yes Diabetes Use to H arris gauge - mellitus test blood [facility] th 00:00: sugar 3 00 times daily. aspirin Yes Diabetes 81mg QD Chew and Reeder rris (ASPIRIN) 08-12 mellitus swallow 1 [facility] 81 mg 00:00: tablet by chewable 00 mouth tablet daily. blood Yes Diabetes 1{each} Use to [facility] glucose - mellitus test blood [...] Scheduled Test 2020-05-12 00:00:00 IMM Influenza Seasonal [facility] May to October (>/= 19 yrs) [code = IMM Influenza Seasonal May to October (>/= 19 yrs)] Future Scheduled Test 1993 00:00:00 DM Foot Exam (Yearly) [facility] [code = DM Foot Exam (Yearly)] Future Scheduled Test 1993 00:00:00 DM Retinal Exam [facility] (Yearly) [code = DM Retinal Exam (Yearly)] Future Scheduled Test 1975 00:00:00 Hemoglobin A1c [facility] measurement (procedure) [code = 25136078] Encounters Start End Encounter Admission Attending Care Care Encounter Source Date/Time Date/Time Type Type Clinicians Facility Department ID 2020-03-10 2020-03-10 Emergency 1 Edgard Loza [facility] [place] [id number] 12:33:00 13:18:00 Edgard Loza [facility] 2020-03-10 2020-03-10 Emergency [facility] MARIA M [id number] 12:33:00 12:33:00 -[id number] [facility] 2020-03-08 2020-03-08 Emergency 1 [facility] MARIA M [id number] 06:38:00 12:26:00 [facility] Results Test Description Test Time Test Comments [...] the main Lab for analysi s. RPR [id number] 15:59:09 Test Item Value Reference Range Interpretation Comments RPR Qual (test code = RPR Qual) Non-Reactive Non-Reactive Reactive Control (test code = Reactive Reactive Control) Weak Reactive Control (test Weak Reactive code = Weak Reactive Control) Non-Reactive Control (test code Non-Reactive = Non-Reactive Control) Lot # (test code = Lot #) [id number] N Expiration Dt (test code = 05-11-2021 N Expiration Dt) POC [id number] 11:13:27 Test Item Value Reference Range Interpretation Comments Glucose POC (test 309 mg/dL 70-115 H If you con metal or wood blocker your code = Glucose POC) patient critically ill, the Becky-Accu Check Infrom II meter should not be used for Glucose determination. Draw a venous Glucose and send to the main Lab for analysis. POC [id number] 07:55:00 Test Item Value Reference Range Interpretation Comments Glucose POC (test 300 mg/dL 70-115 H If you con metal or wood blocker your code = Glucose POC) patient critically ill, the Becky-Accu Check Infrom II meter should not be used for Glucose determination. Draw a venous Glucose and send to the main Lab for analysis. POC [id number] 16:39:59 Test Item Value Reference Range Interpretation Comments Glucose POC (test 286 mg/dL 70-115 H Notify RN or MDIf you code = Glucose POC) consider your patient critically ill, the Becky-Accu Chec k Infrom II meter should not be used for Glucos e determination. Draw a venous Glucose and send to the main Lab for analysis. POC [id number] 12:35:26 Test Item Value Reference Range Interpretation Comments Glucose POC (test 327 mg/dL 70-115 H Notify RN or MDIf you code = Glucose POC) consider your patient critically ill, the Becky-Accu Chec k Infrom II meter should not be used for Glucos e determination. Draw a venous Glucose and send to the main Lab for analysis. POC [id number] 08:39:02 Test Item Value Reference Range Interpretation Comments Glucose POC (test 292 mg/dL 70-115 H If you con metal or wood blocker your code = Glucose POC) patient critically ill, the Becky-Accu Check Infrom II meter should not be used for Glucose determination. Draw a venous Glucose and send to the main Lab for analysis. Novel Coronavirus SARS-CoV-2, [id number] 01:25:42 Test Item Value Reference Range Interpretation [...] Emergency Use Authorization." Urinalysis with Culture, if [id number] 20:40:20 Test Item Value Reference Range Interpretation [...] Indicated Not Indicated Micro Ind?) Urine [id number] 20:38:34 Test Item Value Reference Range Interpretation [...] Propoxyphene Confirmation wi thin 7 days. Alcohol [id number] 20:31:32 Test Item Value Reference Range Interpretation Comments Ethanol Level 3.3 mg/dL N The pharmacolo gical (test code = response to blo od alcohol Ethanol Level) levels may va ry from individual to i ndividual. The fatal keenan ntration has been report ed to be >400 mg/dl. Comprehensive Metabolic [id number] 20:31:31 Test Item Value Reference Range Interpretation [...] = Lipemia) 0 g/dL 1-2 Comprehensive Metabolic [id number] 20:31:31 Test Item Value Reference Range Interpretation [...] = 0 g/dL 1-2 Lipemia) Comprehensive Metabolic [id number] 20:31:31 Test Item Value Reference Range Interpretation [...] ag e have not been validated by [facility] MDRD study and should be interpreted wit [...] ag e have not been validated by [facility] MDRD study and should be interpreted wit h caution. eGFR R esult Interpretation: eGFR > or = 60 is in the Normal RangeeGF R < 60 may mean kid shane diseaseeGFR < 1 5 may mean kidney failure Rang es recommended by the National Kid[employer] Foundation, http://nkdep.[facility].gov Hemolysis (test code 0 g/dL 1-2 = Hemolysis) Icterus (test code = 0 g/dL 1-2 Icterus) Lipemia (test code = 0 g/dL 1-2 Lipemia) Complete Blood Count with [id number] 20:11:47 Test Item Value Reference Range Interpretation [...] code = IPF) 0 % N Automated [id number] 20:11:47 Test Item Value Reference Range Interpretation Comments Neutro Auto (test code = Neutro 67.9 % 36.0-70.0 Auto) Lymph Auto (test code = Lymph Auto) 20.3 % 12.0-44.0 [place]on Auto (test code = [place] Auto) 9.4 % 0.0-11.0 Eos, Auto (test code = Eos, Auto) 1.9 % 0.0-7.0 Basophil Auto (test code = Basophil 0.3 % 0.0-2.0 Auto) Neutro Absolute (test code = Neutro 5.9 x10 1.6-7.4 Absolute) Lymph Absolute (test code = Lymph 1.78 x10 .50-4.60 Absolute) G[place]on Absolute (test code = G[place]on .82 x10 .00-1.20 Absolute) Eos Absolute (test code = Eos 0.17 x10 0.00-0.74 Absolute) Baso Absolute (test code = Baso 0.03 x10 0.00-0.21 Absolute) IG [id number] 20:11:47 Test Item Value Reference Range Interpretation Comments IG (test code = IG) 0.2 % 0.0-5.0 IG Abs (test code = IG Abs) 0 x10 N
--- NOTE | 2020-03-26 12:43 | ER ---
Nurse's Notes [facility] Name: Caesar Schumacher Jr Age: 44 yrs Sex: Male : 1975 Arrival Date: 03/26/2020 Time: 11:59 Bed 8 Private MD: Diagnosis: Suicidal ideations;Bipolar disorder;Type 2 diabetes mellitus Presentation: 03/26 11:59 Chief complaint: EMS states: Pt reports SI, denies plan, seen in ED for same complaint ph recently, SO also called EMS c/o SI w/ no plan, VSS, denies ingestion. Coronavirus screen: Client denies travel out of the [place] in the last 14 days. At this time, the client does not indicate any symptoms associated with coronavirus-19. Ebola Screen: No symptoms or risks identified at this time. Initial Sepsis Screen: Does the patient meet any 2 criteria? No. Patient's initial sepsis screen is negative. Does the patient have a suspected source of infection? No. Patient's initial sepsis screen is negative. Risk Assessment: Do you want to hurt yourself or someone else? Patient reports desire/thoughts of hurting themselves or someone else. Provider notified. Other: report suicidal thoughts,denies plan. Onset of symptoms was March 26, 2020. 11:59 Method Of Arrival: EMS: [facility] ph 11:59 Acuity: ERIS 2 ph Historical: - Allergies: 12:04 No Known Drug Allergies; ph - PMHx: 12:04 ADD/ADHD; Bipolar disorder; Diabetes - NIDDM; Heartburn; Hyperlipidemia; Hypertension; ph Sleep Apnea; - PSHx: 12:04 Hand surgery; ph - Immunization history:: Adult Immunizations unknown. - Family history:: not pertinent. - Social history:: Smoking status: Patient denies any tobacco usage or history of. Screenin:04 Abuse screen: Denies threats or abuse. Denies injuries from another. Nutritional ph screening: No deficits noted. Tuberculosis screening: No symptoms or risk factors identified. Fall Risk None identified. Assessment: 12:45 General: Appears in no apparent distress. comfortable, obese, well developed, Behavior sv is calm, cooperative, appropriate for age. Pain: Denies pain. Neuro: Level of Consciousness is awake, alert, obeys commands, Oriented to person, place, time, situation, Moves all extremities. Full function Gait is steady, Speech is normal. Respiratory: Airway is patent Respiratory effort is even, unlabored, Respiratory pattern is regular, symmetrical. Derm: Skin is pink, warm \\T\\ dry. Musculoskeletal: Range of motion: intact in all extremities. 13:42 Reassessment: Report given to Zaire HALEY at [facility]. Given administrative sv approval by Flores Mayorga at 1342 pending COVID-19 result. Fax result to [phone]. 15:31 Reassessment: Patient appears in no apparent distress at this time. No changes from sv previously documented assessment. Patient and/or family updated on plan of care and expected duration. Pain level reassessed. Patient is alert, oriented x 3, equal unlabored respirations, skin warm/dry/pink. 16:10 Reassessment: Pt signed transport paperwork for transfer. sv Psych: 12:45 Subjective: Patient's mood is sad, Delusions are denied, Hallucinations are auditory, sv visual, Having thoughts of suicide. Plan for suicide is "I wanted to cut my throat with a knife.". Subjective:. Objective: Patient is cooperative, Speech is normal, Affect is appropriate. Interventions: Urine collected and sent for urine drug test. Suicide Risk Assessment: Sad Person Scale: Sex of patient: Male: Score 1 point. Age of patient: Score 0 point if patient falls outside of specified age parameters. Depression: Score 1 point if signs of depression are present. Previous Attempt: Score 1 point if patient has previously attempted suicide. Substance Abuse: Score 1 point if patient abuses alcohol or drugs. Rational Thinking: Score 0 point if patient has rational thinking. Social Support: Score 0 if social support is present/available. Organized Plan: Score 1 point if patient had a plan in place. Relationship: Score 0 point if patient has a spouse or domestic partner. Chronic Sickness: Score 1 point if patient has illness, chronic, debilitating, or severe. Safety Checks: Personal items have been removed. Door is open. No visitors are present at this time. Patient uses of beer, weekly. Last use was 2 days ago. Patient does not have a history of DTs. Commitment: Patient will be a voluntary commitment. Vital Signs: 12:11 BP 143 / 95; Pulse 106; Resp 19; Temp 98.9; Pulse Ox 98% on R/A; jb1 13:39 Weight 176 kg; Height 6 ft. 1 in. (185.42 cm); sv 15:30 BP 149 / 94; Pulse 88; Resp 20; Temp 98.6; Pulse Ox 98% ; sv 13:39 Body Mass Index 51.19 (176.00 kg, 185.42 cm) sv ED Course: 11:59 Patient arrived in ED. ph 12:00 Shoaib Moran MD is Attending Physician. lux 12:03 Triage completed. ph 12:04 Patient has correct armband on for positive identification. Placed in gown. Bed in low ph position. Call light in reach. Side rails up X 1. Pulse ox on. NIBP on. 12:05 Arm band placed on Patient placed in an exam room. ph 12:12 Edel Nam, RN is Primary Nurse. sv 12:45 Inserted saline lock: 20 gauge in right hand, using aseptic technique. Blood collected. sv Flushed right hand with 2 ml normal saline. 12:45 Urine collected: clean catch specimen, clear. sv 13:06 Urine Dipstick--Ancillary (enter results) Sent. sv 13:21 called [facility] to let them know i was faxing over clinical's on a patient in eb the attempt to transfer/ spoke with Abiola. 13:24 EKG done, by ED staff, reviewed by Shoaib Moran MD. sv 13:40 connected Mi the nurse business operations specialist for [facility] with Edel Haley for eb patient transfer consultation. 16:22 No provider procedures requiring assistance completed. IV discontinued, intact, sv bleeding controlled, No redness/swelling at site. Pressure dressing applied. Administered Medications: 13:36 Drug: NS 0.9% 1000 ml Route: IV; Rate: 1 bolus; Site: right hand; sv 15:31 Follow up: Response: No adverse reaction; IV Status: Completed infusion; IV Intake: sv 1000ml 13:36 Drug: Insulin Regular Human 10 units {Co-Signature: sv (Edel Nam RN).} Route: hb IVP; Site: right hand; 15:31 Follow up: Response: No adverse reaction; Blood sugar is lowered sv Intake: 15:31 IV: 1000ml; Total: 1000ml. sv Output: 13:00 Urine: 200ml (Voided); Total: 200ml. sv Outcome: 12:43 ER care complete, transfer ordered by MD. wasserman 16:51 Transferred by ground EMS Transfer form completed. Note: Report given to [facility] 16:51 Condition: stable 16:51 Instructed on the need for transfer. 16:51 Patient left the ED. sv Signatures: Clayton Keenan Stephanie, SUDHA HALEY Shoaib Moran MD MD cha Hall, Patricia, RN RN Yazmin Hollingsworth RN RN hb Botello, Elizabeth eb Stephanie Verde RN Corrections: (The following items were deleted from the chart) 13:40 13:39 176 kg; sv sv
--- NOTE | 2020-03-26 12:43 | EDPHYS ---
Physician Documentation [facility] Name: Caesar Schumacher Jr Age: 44 yrs Sex: Male : 1975 Arrival Date: 03/26/2020 Time: 11:59 Bed 8 Private MD: ED Physician Shoaib Moran HPI: 03/26 12:33 This 44 yrs old Male presents to ER via EMS with complaints of Suicidal lux Ideation. 12:33 The patient presents to the emergency department with anxiety, depression, psychosis, lux has experienced auditory hallucinations, voices are telling patient to cause harm to someone else. Onset: The symptoms/episode began/occurred 2 day(s) ago. Past psychiatric history: Prior diagnosis: bipolar disorder, depression, schizophrenia. Associated signs and symptoms: Pertinent positives; hallucinations, suicide ideation. Severity of symptoms: At their worst the symptoms were moderate in the emergency department the symptoms are unchanged. The patient has not experienced similar symptoms in the past. Historical: - Allergies: 12:04 No Known Drug Allergies; ph - PMHx: 12:04 ADD/ADHD; Bipolar disorder; Diabetes - NIDDM; Heartburn; Hyperlipidemia; Hypertension; ph Sleep Apnea; - PSHx: 12:04 Hand surgery; ph - Immunization history:: Adult Immunizations unknown. - Family history:: not pertinent. - Social history:: Smoking status: Patient denies any tobacco usage or history of. ROS: 12:33 Constitutional: Negative for fever, chills, and weight loss, Eyes: Negative for injury, lux pain, redness, and discharge, ENT: Negative for injury, pain, and discharge, Neck: Negative for injury, pain, and swelling, Cardiovascular: Negative for chest pain, palpitations, and edema, Respiratory: Negative for shortness of breath, cough, wheezing, and pleuritic chest pain, Abdomen/GI: Negative for abdominal pain, nausea, vomiting, diarrhea, and constipation, Back: Negative for injury and pain, : Negative for injury, bleeding, discharge, and swelling, MS/Extremity: Negative for injury and deformity, Skin: Negative for injury, rash, and discoloration, Neuro: Negative for headache, weakness, numbness, tingling, and seizure, Allergy/Immunology: Negative for hives, rash, and allergies, Endocrine: Negative for neck swelling, polydipsia, polyuria, polyphagia, and marked weight changes, Hematologic/Lymphatic: Negative for swollen nodes, abnormal bleeding, and unusual bruising. 12:33 Psych: Positive for depression, suicidal ideation. 12:33 Psych: Positive for auditory hallucinations. 12:33 Allergy/Immunology: Positive for Exam: 12:33 Constitutional: This is a well developed, well nourished patient who is awake, alert, lux and in no acute distress. Head/Face: Normocephalic, atraumatic. Eyes: Pupils equal round and reactive to light, extra-ocular motions intact. Lids and lashes normal. Conjunctiva and sclera are non-icteric and not injected. Cornea within normal limits. Periorbital areas with no swelling, redness, or edema. ENT: Nares patent. No nasal discharge, no septal abnormalities noted. Tympanic membranes are normal and external auditory canals are clear. Oropharynx with no redness, swelling, or masses, exudates, or evidence of obstruction, uvula midline. Mucous membranes moist. Neck: Trachea midline, no thyromegaly or masses palpated, and no cervical lymphadenopathy. Supple, full range of motion without nuchal rigidity, or vertebral point tenderness. No Meningismus. Chest/axilla: Normal chest wall appearance and motion. Nontender with no deformity. No lesions are appreciated. Cardiovascular: Regular rate and rhythm with a normal S1 and S2. No gallops, murmurs, or rubs. Normal PMI, no JVD. No pulse deficits. Respiratory: Lungs have equal breath sounds bilaterally, clear to auscultation and percussion. No rales, rhonchi or wheezes noted. No increased work of breathing, no retractions or nasal flaring. Abdomen/GI: Soft, non-tender, with normal bowel sounds. No distension or tympany. No guarding or rebound. No evidence of tenderness throughout. Back: No spinal tenderness. No costovertebral tenderness. Full range of motion. Male : Normal genitalia with no discharge or lesions. Skin: Warm, dry with normal turgor. Normal color with no rashes, no lesions, and no evidence of cellulitis. MS/ Extremity: Pulses equal, no cyanosis. Neurovascular intact. Full, normal range of motion. Neuro: Awake and alert, GCS 15, oriented to person, place, time, and situation. Cranial nerves II-XII grossly intact. Motor strength 5/5 in all extremities. Sensory grossly intact. Cerebellar exam normal. Normal gait. 12:33 Psych: Behavior/mood is pleasant, Affect is calm, Oriented to person, place, time, Patient has no thoughts/intents to harm self or others. Judgement / Insight is normal. Memory is normal. Delusions/hallucinations are present and described as auditory for days, if i go home and don't get help , i will hurt myself. 13:29 ECG was reviewed by the Attending Physician. [facility] Vital Signs: 12:11 BP 143 / 95; Pulse 106; Resp 19; Temp 98.9; Pulse Ox 98% on R/A; jb1 13:39 Weight 176 kg; Height 6 ft. 1 in. (185.42 cm); sv 15:30 BP 149 / 94; Pulse 88; Resp 20; Temp 98.6; Pulse Ox 98% ; sv 13:39 Body Mass Index 51.19 (176.00 kg, 185.42 cm) sv MDM: 12:00 Patient medically screened. [facility] 12:36 Data reviewed: vital signs, nurses notes, lab test result(s), EKG. [facility] 12:36 Differential diagnosis: drug withdrawal. acute psychotic break, depression. Data lux interpreted: radiation monitor: rate is 106 beats/min, rhythm is regular, Pulse oximetry: on room air is 98 %. Test interpretation: by ED physician or midlevel provider: ECG. Counseling: I had a detailed discussion with the patient and/or guardian regarding: the historical points, exam findings, and any diagnostic results supporting the discharge/admit diagnosis, lab results, the need to transfer to another facility, for higher level of care, [facility] does not immediately have the required specialist. 12:38 ED course: suicidal, not homicidal, wants help, voluntarly. [facility] 03/26 12:32 Order name: Acetaminophen; Complete Time: 13:27 [facility] 03/26 12:32 Order name: Basic Metabolic Panel; Complete Time: 13:27 [facility] 03/26 12:32 Order name: CBC with Diff; Complete Time: 13:27 [facility] 03/26 12:32 Order name: ETOH Level; Complete Time: 13:27 [facility] 03/26 12:32 Order name: Hepatic Function; Complete Time: 13:27 [facility] 03/26 12:32 Order name: PT-INR [facility] 03/26 12:32 Order name: Ptt, Activated [facility] 03/26 12:32 Order name: Salicylate; Complete Time: 13:27 [facility] 03/26 12:32 Order name: Urine Drug Screen; Complete Time: 13:27 [facility] 03/26 12:43 Order name: COVID-19 [facility] 03/26 13:05 Order name: Urine Dipstick--Ancillary (enter results); Complete Time: 13:27 03/26 15:03 Order name: SARS-COV-2 RT PCR [facility] 03/26 12:32 Order name: EKG; Complete Time: 12:32 [facility] 03/26 12:32 Order name: EKG - Nurse/Tech; Complete Time: 13:24 [facility] 03/26 12:32 Order name: IV Saline Lock; Complete Time: 13:06 [facility] 03/26 12:32 Order name: Labs collected and sent; Complete Time: 13:06 [facility] 03/26 12:32 Order name: Urine Dipstick-Ancillary (obtain specimen); Complete Time: 13:06 [facility] EC:29 Rate is 94 beats/min. Rhythm is regular. QRS [place] is Normal. RI interval is normal. QRS lux interval is normal. QT interval is normal. No Q waves. T waves are Normal. No ST changes noted. Clinical impression: Normal ECG and No evidence of ischemia. Interpreted by me. Reviewed by me. Administered Medications: 13:36 Drug: NS 0.9% 1000 ml Route: IV; Rate: 1 bolus; Site: right hand; sv 15:31 Follow up: Response: No adverse reaction; IV Status: Completed infusion; IV Intake: sv 1000ml 13:36 Drug: Insulin Regular Human 10 units {Co-Signature: miguel ángel (Edel Nam RN).} Route: hb IVP; Site: right hand; 15:31 Follow up: Response: No adverse reaction; Blood sugar is lowered sv Disposition: 03/26/20 12:43 Transfer ordered to Psych Facility. Diagnosis are Suicidal ideations, Bipolar disorder, Type 2 diabetes mellitus. - Reason for transfer: Higher level of care. - Accepting physician is to psych. - Condition is Stable. - Problem is new. - Symptoms have improved. Signatures: Dispatcher Med[employer] Edel Foley RN RN sv Anderson, Corey, MD MD cha Hall, Patricia, RN RN ph Yazmin Hollingsworth RN RN Edel Nam RN sv Corrections: (The following items were deleted from the chart) 13:41 12:43 03/26/2020 12:43 Transfer ordered to Psych Facility. Diagnosis is Suicidal lux ideations; Bipolar disorder. Reason for transfer: Higher level of care. Accepting physician is to psych. Condition is Stable. Problem is new. Symptoms have improved. lux 16:51 13:41 03/26/2020 12:43 Transfer ordered to Psych Facility. Diagnosis is Suicidal sv ideations; Bipolar disorder; Type 2 diabetes mellitus. Reason for transfer: Higher level of care. Accepting physician is to psych. Condition is Stable. Problem is new. Symptoms have improved. lux
[2020-03-26 13:04] LABS: Absolute Lymphocytes (CBC) 1.4 K/uL (0.7-4.9); Basophils % 1.1 % (0-1.3); Hematocrit 47.7 % (39.6-49.0); Lymphocytes % 17.6 % (15.3-44.8); MPV 8.3 fL (7.6-11.3); RBC Red Blood Cell Count 5.62 M/uL (4.33-5.43)
[2020-03-26 13:11] LABS: Urine Blood NEGATIVE (NEG); Urine Glucose 2+ (NEG); Urine Protein NEGATIVE (NEG); Urine pH 5.5 (5.0-7.0)
[2020-03-26 13:12] LABS: Barbiturates NEGATIVE (NEGATIVE); Benzodiazepines NEGATIVE (NEGATIVE); Cocaine NEGATIVE (NEGATIVE); METHAMPHETAM NEGATIVE (NEGATIVE); Methadone NEGATIVE (NEGATIVE); Opiates NEGATIVE (NEGATIVE); Phencyclidine NEGATIVE (NEGATIVE); Protime INR 0.99; THC Cannibis NEGATIVE (NEGATIVE)
[2020-03-26 13:24] LABS: ALT/SGPT 93 U/L (12-78); AST/SGOT 74 U/L (15-37); Albumin 3.3 g/dL (3.4-5.0); Alkaline Phosphatase 97 U/L (45-117); BUN Blood Urea Nitrogen 16 mg/dL (7-18); Bicarbonate 30 mmol/L (21-32); Bilirubin Direct < 0.1 mg/dL (0-0.2); Bilirubin Total 0.3 mg/dL (0.2-1.0); Glucose Level 367 mg/dL (74-106); Potassium 4.5 mmol/L (3.5-5.1); Protein, Total 8.2 g/dL (6.4-8.2); Sodium Level 131 mmol/L (136-145)
[2020-03-26] MEDS ORDERED: NA CHLORIDE 0.9% 1,000 ML ONE (13:43)
[2020-03-26] MEDS ORDERED: INSULIN -REGULAR HUMAN 50 UNIT/0.5 ML ML ONE (13:43)
[2020-03-26 16:58] VITALS: O2SAT 98
[2020-03-26 16:59] VITALS: BP 149/94; TEMP 98.6
--- NOTE | 2020-03-27 15:35 | EKG ---
Test Date: 2020-03-26 Test Time: 13:18:58 Membership Secretary: IDANIA MEASUREMENT RESULTS: Intervals: Rate: 94 FL: 170 QRSD: 100 QT: 364 QTc: 455 [place]: P: 63 FL: 170 QRS: 62 T: 57 INTERPRETIVE STATEMENTS: Normal sinus rhythm Normal ECG Compared to ECG 02/23/2020 11:20:17 Incomplete right bundle-branch block no longer present Left posterior fascicular block no longer present Electronically Signed On 03-27-20 15:34:41 CDT by Truman Holly
== END 2020-03-26 16:51 ==
LOC: ER 11:52
DX: F31.9 Bipolar disorder, unspecified (principal); Z20.828 Contact with and (suspected) exposure to other viral communicable diseases; E11.9 Type 2 diabetes mellitus without complications; I10 Essential (primary) hypertension
CPT/HCPCS: 96361; 93005; 85025; 80048; 36415; 80320; 80329 ×2; 85610; 82947; 80076; 80307 ×8; 85730; 81003; 96374; 99285; V0003; J7030; U0003